=== PATIENT | female | born 1975 | race Caucasian/White ===

== ENCOUNTER → 2017-01-08 | Outpatient (CLI) | payer BC ==
--- NOTE | 2017-01-08 09:26 | MM ---
Reason for exam: screening (asymptomatic). Baseline mammogram. History: Family history of breast cancer in grandmother at age 80. Excisional biopsy of the right breast, 1997. Took hormonal contraceptives for 3 years beginning at age 17. Physical Findings: Nurse did not find any significant physical abnormalities on exam. MG 3D Screening Mammo W/Cad Bilateral CC and MLO view(s) were taken. The breast tissue is heterogeneously dense. This may lower the sensitivity of mammography. Post excisional biopsy retroareolar right breast mole. These results were verbally communicated with the patient and result sheet given to the patient on 01/08/17. ASSESSMENT: Benign, BI-RAD 2 RECOMMENDATION: Routine screening mammogram of both breasts in 1 year.
== END | disposition home or self-care (01) ==
LOC: RADMAMWWP 08:24
PROVIDERS: ATTEND Obstetrics & Gynecology
DX: Z12.31 Encounter for screening mammogram for malignant neoplasm of breast (principal)
CPT/HCPCS: 77063; G0202

== ENCOUNTER 2017-08-04 13:27 | Observation (INO) | payer BC ==
[2017-08-04] MEDS ORDERED: SODIUM CHLORIDE 0.9% 1,000 ML IV STA (14:11)
[2017-08-04] MEDS ORDERED: LORazepam 2 MG/ML INJ IV STA (14:21)
[2017-08-04 14:37] LABS: Basophils # (A) 0.1 k/uL (0-0.2); Basophils % (A) 1 %; Eosinophils # (A) 0.2 k/uL (0-0.7); Eosinophils % (A) 2 %; HCT 41.4 % (34.0-46.0); HGB 14.5 gm/dL (11.4-16.0); Lymphocytes # (A) 2.3 k/uL (1.0-4.8); Lymphocytes % (A) 30 %; MCH 30.4 pg (25.0-35.0); MCV 86.8 fL (80.0-100.0); Mean Platelet Volume 6.7; Monocytes # (A) 0.4 k/uL (0-1.0); Monocytes % (A) 5 %; Neutrophils # (A) 4.4 k/uL (1.3-7.7); Neutrophils % (A) 59 %; Platelet Count 351 k/uL (150-450); RBC 4.77 m/uL (3.80-5.40); WBC 7.6 k/uL (3.8-10.6)
--- NOTE | 2017-08-04 14:49 | XR ---
EXAMINATION TYPE: XR chest 2V DATE OF EXAM: 08/04/2017 COMPARISON: NONE HISTORY: Dysrhythmia TECHNIQUE: Frontal and lateral views of the chest are obtained. FINDINGS: There is no focal air space opacity, pleural effusion, or pneumothorax seen. The cardiac silhouette size is within normal limits. Suspect a scoliosis and associated pectus deformity. The os seous structures are intact. IMPRESSION: No acute cardiopulmonary process.
[2017-08-04 14:51] LABS: ALT 25 U/L (9-52); AST 24 U/L (14-36); Albumin 4.6 g/dL (3.5-5.0); Alkaline Phosphatase 69 U/L (38-126); Anion Gap 17 mmol/L; Blood Urea Nitrogen 11 mg/dL (7-17); Calcium 9.5 mg/dL (8.4-10.2); Carbon Dioxide 20 mmol/L (22-30); Chloride 103 mmol/L (98-107); Glucose 123 mg/dL (74-99); Potassium 3.6 mmol/L (3.5-5.1); Sodium 140 mmol/L (137-145); Total Bilirubin 1.1 mg/dL (0.2-1.3); Total Protein 7.2 g/dL (6.3-8.2)
[2017-08-04 14:53] LABS: Creatine Kinase 91 U/L (30-135)
[2017-08-04 14:57] LABS: D-Dimer 0.27 mg/L FEU (<0.60)
[2017-08-04 15:06] LABS: Creatine Kinase MB 0.5 ng/mL (0.0-2.4); Troponin I <0.012 ng/mL (0.000-0.034)
[2017-08-04 15:11] LABS: INR 1.2 (<1.2); Prothrombin Time 11.2 sec (9.0-12.0)
--- NOTE | 2017-08-04 18:17 | ED ---
Arrhythmia/Palpitations HPI - General Chief Complaint: Arrhythmia/Palpitations Stated Complaint: racing heart Time Seen by Provider: 08/04/17 13:47 Source: patient Mode of arrival: wheelchair Limitations: no limitations - History of Present Illness Initial Comments: 31 years old female presents with a palpitation, she said she feels funny she feels her hands or tingling she called the chest pain but does symptoms of funny feeling in the chest like palpitation she is very anxious she denies any chest pain no shortness of breath no abdominal pain no pleuritic pain is just a palpitation and she had this going on recently then she is pretty pretty healthy no history of heart disease no hypertension or diabetes surgery gonzales he has only a uterine ablation done family history of the parents has a history of heart disease she is nonsmoker him in review of system is unremarkable otherwise - Related Data Home Medications Medication Instructions Recorded Confirmed No Known Home Medications [No 08/04/17 08/04/17 Known Home Medications] Allergies Allergy/AdvReac Type Severity Reaction Status Date / Time Sulfa (Sulfonamide Allergy Rash/Hives Verified 08/04/17 14:20 Antibiotics) Review of Systems ROS Statement: Those systems with pertinent positive or pertinent negative responses have been documented in the HPI. ROS Other: All systems not noted in ROS Statement are negative. Past Medical History Past Medical History: No Reported History History of Any Multi-Drug Resistant Organisms: None Reported Past Surgical History: Appendectomy Additional Past Surgical History / Comment(s): uterine ablasion, Past Psychological History: No Psychological Hx Reported Smoking Status: Current some day smoker Past Alcohol Use History: Occasional Past Drug Use History: None Reported General Exam - General Exam Comments Initial Comments: General: The patient is awake and alert, in no distress, and does not appear acutely ill. Very very anxious Skin: Skin is warm and dry and no rashes or lesions are noted. Eye: Pupils are equal, round and reactive to light, extra-ocular movements are intact; there is normal conjunctiva bilaterally. Ears, nose, mouth and throat: There are moist mucous membranes and no oral lesions. Neck: The neck is supple, there is no tenderness or JVD. Cardiovascular: There is a regular rate and rhythm. No murmur, rub or gallop is appreciated. Noticed tachycardia Respiratory: To auscultation bilateral, no wheezing no rhonchi no distress respiratory gonzales noticed Gastrointestinal: Soft, non-distended, non-tender abdomen without masses or organomegaly noted. There is no rebound or guarding present. Bowel sounds are unremarkable. Back: There is no tenderness to palpation in the midline. There is no obvious deformity. Musculoskeletal: Normal ROM, no tenderness, There is no pedal edema. There is no calf tenderness or swelling. No cords were appreciated. Neurological: CN II-XII intact, Cranial nerves III through XII are intact. There are no obvious motor or sensory deficits. Coordination appears grossly intact. Speech is normal. Psychiatric: Cooperative, anxious, no obvious depression noticed. Limitations: no limitations Course Vital Signs 08/04/17 08/04/17 08/04/17 13:45 15:06 16:03 Temperature 97.8 F Pulse Rate 111 H 93 83 Respiratory 24 18 18 Rate Blood Pressure 180/88 155/60 138/71 O2 Sat by Pulse 99 99 98 Oximetry Patient was reassessed at term 1800, CBC, d-dimer, troponin, compressive metabolic panel, chest x-ray are ordered unremarkable, the EKG had some ST depression in the considering the palpitation of her like to put her in observation for 3 sets of cardiac markers and now cardiology consult EKG Findings - EKG Comments: EKG Findings:: EKG is sinus tachycardia ventricular rate is 116 [place] interval is 160 QRS duration is 76 QT/QTc is 322/447 review of this EKG reveals some ST depression in lead 2 and [address] depression in aVF and noticed some ST depression in V4 V5 and V6 Medical Decision Making - Lab Data Result diagrams: 08/04/17 14:17 08/04/17 14:17 Lab Results 08/04/17 08/04/17 08/04/17 Range/Units 14:17 14:17 14:17 WBC 7.6 (3.8-10.6) k/uL RBC 4.77 (3.80-5.40) m/uL Hgb 14.5 (11.4-16.0) gm/dL Hct 41.4 (34.0-46.0) % MCV 86.8 (80.0-100.0) fL MCH 30.4 (25.0-35.0) pg MCHC 35.0 (31.0-37.0) g/dL RDW 12.0 (11.5-15.5) % Plt Count 351 (150-450) k/uL Neutrophils % 59 % Lymphocytes % 30 % Monocytes % 5 % Eosinophils % 2 % Basophils % 1 % Neutrophils # 4.4 (1.3-7.7) k/uL Lymphocytes # 2.3 (1.0-4.8) k/uL Monocytes # 0.4 (0-1.0) k/uL Eosinophils # 0.2 (0-0.7) k/uL Basophils # 0.1 (0-0.2) k/uL PT (9.0-12.0) sec INR (<1.2) APTT (22.0-30.0) sec D-Dimer (<0.60) mg/L FEU Sodium 140 (137-145) mmol/L Potassium 3.6 (3.5-5.1) mmol/L Chloride 103 (98-107) mmol/L Carbon Dioxide 20 L (22-30) mmol/L Anion Gap 17 mmol/L BUN 11 (7-17) mg/dL Creatinine 0.65 (0.52-1.04) mg/dL Est GFR (CKD-EPI)AfAm >90 (>60 ml/min/1.73 sqM) Est GFR (CKD-EPI)NonAf >90 (>60 ml/min/1.73 sqM) Glucose 123 H (74-99) mg/dL Calcium 9.5 (8.4-10.2) mg/dL Magnesium 2.0 (1.6-2.3) mg/dL Total Bilirubin 1.1 (0.2-1.3) mg/dL AST 24 (14-36) U/L ALT 25 (9-52) U/L Alkaline Phosphatase 69 (38-126) U/L Total Creatine Kinase 91 (30-135) U/L CK-MB (CK-2) 0.5 (0.0-2.4) ng/mL CK-MB (CK-2) Rel Index 0.5 Troponin I <0.012 (0.000-0.034) ng/mL Total Protein 7.2 (6.3-8.2) g/dL Albumin 4.6 (3.5-5.0) g/dL TSH 0.675 (0.465-4.680) mIU/L 08/04/17 Range/Units 14:17 WBC (3.8-10.6) k/uL RBC (3.80-5.40) m/uL Hgb (11.4-16.0) gm/dL Hct (34.0-46.0) % MCV (80.0-100.0) fL MCH (25.0-35.0) pg MCHC (31.0-37.0) g/dL RDW (11.5-15.5) % Plt Count (150-450) k/uL Neutrophils % % Lymphocytes % % Monocytes % % Eosinophils % % Basophils % % Neutrophils # (1.3-7.7) k/uL Lymphocytes # (1.0-4.8) k/uL Monocytes # (0-1.0) k/uL Eosinophils # (0-0.7) k/uL Basophils # (0-0.2) k/uL PT 11.2 (9.0-12.0) sec INR 1.2 H (<1.2) APTT 24.0 (22.0-30.0) sec D-Dimer 0.27 (<0.60) mg/L FEU Sodium (137-145) mmol/L Potassium (3.5-5.1) mmol/L Chloride (98-107) mmol/L Carbon Dioxide (22-30) mmol/L Anion Gap mmol/L BUN (7-17) mg/dL Creatinine (0.52-1.04) mg/dL Est GFR (CKD-EPI)AfAm (>60 ml/min/1.73 sqM) Est GFR (CKD-EPI)NonAf (>60 ml/min/1.73 sqM) Glucose (74-99) mg/dL Calcium (8.4-10.2) mg/dL Magnesium (1.6-2.3) mg/dL Total Bilirubin (0.2-1.3) mg/dL AST (14-36) U/L ALT (9-52) U/L Alkaline Phosphatase (38-126) U/L Total Creatine Kinase (30-135) U/L CK-MB (CK-2) (0.0-2.4) ng/mL CK-MB (CK-2) Rel Index Troponin I (0.000-0.034) ng/mL Total Protein (6.3-8.2) g/dL Albumin (3.5-5.0) g/dL TSH (0.465-4.680) mIU/L Disposition Clinical Impression: Palpitation Disposition: ADMITTED IP TO THIS HOSP Condition: Good Referrals: Aurelio Mosley MD [Primary Care Provider] - 1-2 days
[2017-08-04] MEDS ORDERED: MORPHINE SULFATE/PF 10MG/10ML VL IVP PRN (18:25)
[2017-08-04 20:46] VITALS: RESP 16
[2017-08-04] MEDS: METOPROLOL TARTRATE 25 MG TAB PO SCH (20:57)
[2017-08-04] MEDS ORDERED: ATORVASTATIN 40 MG TAB PO SCH (21:00)
[2017-08-04 21:03] LABS: Creatine Kinase 63 U/L (30-135)
[2017-08-04 21:13] VITALS: BMI 25.3
[2017-08-04 21:17] LABS: Creatine Kinase MB 0.5 ng/mL (0.0-2.4); Troponin I <0.012 ng/mL (0.000-0.034)
[2017-08-05 02:57] LABS: Cholesterol 147 mg/dL (<200); HDL Cholesterol 62 mg/dL (40-60); LDL Cholesterol,Calculated 72 mg/dL (0-99); Triglycerides 67 mg/dL (<150)
[2017-08-05 03:14] LABS: Creatine Kinase 60 U/L (30-135)
[2017-08-05 03:25] LABS: Creatine Kinase MB 0.4 ng/mL (0.0-2.4); Troponin I <0.012 ng/mL (0.000-0.034)
--- NOTE | 2017-08-05 07:53 | P.HPIM ---
History of Present Illness H&P Date: 08/05/17 Chief Complaint: Palpitations. This is a history of physical 41-year-old white female fairly well-known to my practice who said for the last 6 months is been stating significant start of palpitations. Yesterday, he she had significant lightheadedness with arm numbness and was found have significant SVT. The patient states that the palpitations usually last about 10-15 minutes and are not provoked by any type of maneuver. They resolve spontaneously without any palliative element. No loss consciousness. But there was lightheadedness as stated yesterday. She states they've been happening daily for the last several weeks. No fever or chills. No cough the patient is nonsmoker. She does intermittently drink wine at night. However, no history of alcoholism. No history of illicit substance abuse. Review of Systems Constitutional: Denies chills, Denies fever Eyes: denies blurred vision, denies pain Ears, nose, mouth and throat: Denies headache, Denies sore throat Cardiovascular: Denies chest pain, Denies shortness of breath Respiratory: Denies cough Gastrointestinal: Denies abdominal pain, Denies diarrhea, Denies nausea, Denies vomiting Genitourinary: Denies dysuria, Denies hematuria Past Medical History Past Medical History: No Reported History History of Any Multi-Drug Resistant Organisms: None Reported Past Surgical History: Appendectomy Additional Past Surgical History / Comment(s): uterine ablasion, right lumpectomy which was negative Past Anesthesia/Blood Transfusion Reactions: No Reported Reaction Additional Past Anesthesia/Blood Transfusion Reaction / Comment(s): pt states no reactions Past Psychological History: No Psychological Hx Reported Smoking Status: Current some day smoker Past Alcohol Use History: Occasional Past Drug Use History: None Reported - Past Family History Mother Family Medical History: Cancer Additional Family Medical History / Comment(s): nonhodgkins lymphoma Father Family Medical History: Cancer Additional Family Medical History / Comment(s): leukemia Medications and Allergies Home Medications Medication Instructions Recorded Confirmed Type No Known Home Medications [No 08/04/17 08/04/17 History Known Home Medications] Allergies Allergy/AdvReac Type Severity Reaction Status Date / Time Sulfa (Sulfonamide Allergy Rash/Hives Verified 08/04/17 14:20 Antibiotics) Physical Exam Vitals: Vital Signs Temp Pulse Pulse Resp BP BP Pulse Ox 08/05/17 04:00 96.6 F L 77 16 123/65 98 08/05/17 00:00 97.8 F 89 16 132/63 98 08/04/17 20:45 98.0 F 88 16 139/82 98 08/04/17 19:08 81 18 151/75 99 08/04/17 16:03 83 18 138/71 98 08/04/17 15:06 93 18 155/60 99 08/04/17 13:45 97.8 F 111 H 24 180/88 99 Intake and Output 08/04/17 08/05/17 08/05/17 22:59 06:59 14:59 Intake Total 999 Balance 999 Intake: Intake, IV Titration 999 Amount Sodium Chloride 0.9% 1, 999 000 ml @ 999 mls/hr IV . Q1H1M STA Rx#:[id number] Other: Voiding Method Toilet # Voids 0 Weight 71.214 kg 71.2 kg - Constitutional General appearance: no acute distress - EENT Eyes: EOMI - Neck Neck: no lymphadenopathy - Respiratory Respiratory: bilateral: CTA - Cardiovascular Rhythm: regular Heart sounds: normal: S1, S2 - Gastrointestinal General gastrointestinal: soft, no tenderness - Psychiatric Psychiatric: A&O x's 3 Results CBC & Chem 7: 08/04/17 14:17 08/04/17 14:17 Labs: Abnormal Lab Results - Last 24 Hours (Table) 08/04/17 08/04/17 08/05/17 Range/Units 14:17 14:17 02:13 INR 1.2 H (<1.2) Carbon Dioxide 20 L (22-30) mmol/L Glucose 123 H (74-99) mg/dL HDL Cholesterol 62 H (40-60) mg/dL Thrombosis Risk Factor Assmnt - Choose All That Apply Any of the Below Risk Factors Present?: Yes Each Factor Represents 1 point: Obesity (BMI >25) Other Risk Factors: No Thrombosis Risk Factor Assessment Total Risk Factor Score: 1 Thrombosis Risk Factor Assessment Level: Low Risk Assessment and Plan (1) Tachycardia Current Visit: Yes Status: Acute Code(s): R00.0 - TACHYCARDIA, UNSPECIFIED SNOMED Code(s): 1867025 (2) Palpitation Current Visit: Yes Status: Acute Code(s): R00.2 - PALPITATIONS SNOMED Code (s): 73883211 Plan: Palpitations with history of tachycardia. We'll go ahead and check echocardiogram and consider Holter versus monitor given her daily symptomatology. Consult cardiology. Consider echocardiogram. Also check TSH with electrolyte imbalance. The patient is full code otherwise. Time with Patient: Less than 30
[2017-08-05] MEDS: METOPROLOL TARTRATE 25 MG TAB PO SCH (08:36)
[2017-08-05] MEDS ORDERED: ASPIRIN 325 MG TAB PO SCH (09:00)
--- NOTE | 2017-08-05 10:05 | CONS ---
CONSULTATION CHIEF COMPLAINT: Palpitations. 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, developed sustained palpitations yesterday. With that she felt somewhat unwell, felt a little dizzy and had some shoulder discomfort due to which she went to the ER from where she is admitted. Her initial EKG shows sinus tachycardia with ST-T wave changes, probably related to it. Subsequently, her heart rate has come down and she has been feeling well since. Subsequent EKGs also look normal. She has had 3 sets of cardiac enzymes that are all within normal limits. D-dimer is normal. Hemoglobin is normal at 14.5. Her lipid profile shows an total cholesterol of 147, HDL is 62, LDL is 72. There is no history of hypertension, diabetes, dyslipidemia. FAMILY HISTORY: There is no family history of premature coronary artery disease. SOCIAL HISTORY: Significant for smoking. There is no history of EtOH abuse or drug abuse. REVIEW OF SYSTEMS: HEENT is unremarkable. CARDIAC: As described above. RESPIRATORY: Negative. GI: Negative. : Negative. ALLERGY/IMMUNOLOGY: Negative. SKIN: Negative. MUSCULOSKELETAL: Negative. ENDOCRINE: Negative. HEMATOLOGICAL: Negative. DERM: Negative. CONSTITUTIONAL: Negative. ONCOLOGICAL: Negative. Rest of the system review is not relevant. PHYSICAL EXAM: On exam, comfortable at rest. Vital signs are stable. There is no jugular venous distention. Carotid upstroke is normal. There is no bruit, Chest exam reveals good air entry bilaterally. Heart exam reveals first and second heart sounds. No gallop. No murmur. No rub. Abdomen is soft, nontender. Examination of extremities did not reveal any edema. Peripheral pulses are felt. LABS: Labs show that the hemoglobin is 14.5, platelet count is 350. Potassium is 3.6. Creatinine is 0.6. Three sets of troponins are negative. EKGs are as described above. ASSESSMENT: Inappropriate sinus tachycardia. PLAN: I am going to obtain an echocardiogram to assess her LV function. A stress test to rule out coronary artery disease given the history of smoking and the nonspecific ST-T wave changes on the EKG and atypical chest discomfort. If this workup is negative, she can be discharged home on Lopressor 25 b.i.d. for the inappropriate sinus tachycardia. Thank you for allowing us to participate in the care of this pleasant lady. MMODL / IJN: [id number] /
[2017-08-05] MEDS ORDERED: MORPHINE ORAL SOLN 10 MG/5 ML CUP PO PRN (15:32)
[2017-08-05] MEDS ORDERED: METOPROLOL SUCCINATE (ER) 25 MG TAB.ER.24H PO SCH (16:00)
[2017-08-05 16:02] VITALS: BP 121/69; PULSE 75; TEMP 97.2
--- NOTE | 2017-08-05 21:43 | ECHOS ---
STRESS ECHOCARDIOGRAM DATE OF SERVICE: 08/05/2017 INDICATIONS: Chest pain. MEDICATIONS: None. BASELINE HEART RATE: 81 BASELINE BLOOD PRESSURE: 125/68 MAXIMUM HEART RATE: 159 MAXIMUM BLOOD PRESSURE: 171/77 85% MPHR: 153 100% MPHR: 180 METS: 11.5 MAXIMUM STAGE REACHED: 4 TOTAL EXERCISE TIME: 10:00 CLINICAL INFORMATION: Baseline EKG revealed a normal sinus rhythm without significant ST-T changes. Patient walked on a standard Vahe protocol, achieved a maximal heart rate of 159 beats per minute, which is more than 85% of predicted maximal. She developed fatigue and shortness of breath but did not have any anginal symptoms. EKG revealed some artifact, but there was no evidence of any ST-segment changes to indicate ischemia. There was no arrhythmia. By EKG criteria, this is a negative stress test with excellent exercise capacity. Baseline echo images revealed normal wall motion and wall thickening of all segments. At peak exercise there was good augmentation of left ventricular wall motion and wall thickening of all segments, suggesting that there is no evidence of stress-induced ischemia on this study. FINAL IMPRESSION: 1. Excellent exercise capacity with a negative stress test by EKG criteria. 2. Normal stress echocardiogram without any evidence of ischemia. MMODL / IJN: [id number] /
--- NOTE | 2017-08-06 18:13 | P.DS ---
Providers Date of admission: 08/04/17 18:17 Expected date of discharge: 08/06/17 Attending physician: Aurelio Mosley Consults: 08/04/17 18:17 Consult Physician Urgent Consulting Provider: Thea Zamora Consult Reason/Comments: Palpitations Do you want consulting provider notified?: Yes Primary care physician: Aurelio Mosley - Discharge Diagnosis(es) (1) Tachycardia Status: Acute (2) Palpitation Status: Acute Hospital Course: This is discharge summary on a 41-year-old white female essentially admitted for palpitations and ventricular tachycardia. The patient had dizziness with lightheadedness. Stress echocardiogram with echocardiogram did not show significant issue. The patient is discharged in stable condition on appropriate beta-luis angel once cleared by cardiology. The patient is to follow- up with me in about 10 days. Patient Condition at Discharge: Good Plan - Discharge Summary New Discharge Prescriptions: New Metoprolol Succinate (ER) [Toprol XL] 25 mg PO DAILY #30 tab.er.24h Discharge Medication List Metoprolol Succinate (ER) [Toprol XL] 25 mg PO DAILY #30 tab.er.24h 08/05/17 [Rx ] Follow up Appointment(s)/Referral(s): Rupesh Zamorano MD [STAFF PHYSICIAN] - 08/31/17 4:15 pm (Please pickup driver event monitor during lunch hour tomorrow at [facility].) Aurelio Mosley MD [Primary Care Provider] - 10 Days Patient Instructions/Handouts: Palpitations (DC) Discharge Disposition: HOME SELF-CARE
--- NOTE | 2017-08-17 13:24 | ECHOF ---
Referral Reason: MEASUREMENTS -------- HEIGHT: 167.6 cm WEIGHT: 70.8 kg BP: RVIDd: 2.8 cm (< 3.3) IVSd: 0.9 cm (0.6 - 1.1) LVIDd: 4.3 cm (3.9 - 5.3) LVPWd: 0.9 cm (0.6 - 1.1) IVSs: 1.3 cm LVIDs: 2.5 cm LVPWs: 1.2 cm Ao Diam: 2.6 cm (2.0 - 3.7) AV Cusp: 2.0 cm (1.5 - 2.6) LA Diam: 2.7 cm (2.7 - 3.8) MV EXCURSION: 14.881 mm (> 18.000) MV EF SLOPE: 121 mm/s (70 - 150) EPSS: 0.3 cm MV E Hawk: 0.95 m/s MV DecT: 234 ms MV A Hawk: 0.65 m/s MV E/A Ratio: 1.47 RAP: 5.00 mmHg RVSP: 7.40 mmHg FINDINGS -------- Sinus rhythm. This was a technically good study. The left ventricular size is normal. Left ventricular wall thickness is normal. Overall left vent ricular systolic function is normal with, an EF between 55 - 60 %. The right ventricle is normal in size and function. The left atrium is normal in size. The right atrium is normal in size. The aortic valve is trileaflet, and appears structurally normal. No aortic stenosis or regurgitation. There is trace mitral regurgitation. Trace tricuspid regurgitation present. The right ventricular systolic pressure, as measured by Dopp ler, is 7.40mmHg. Pulmonic valve appears structurally normal. The aortic root size is normal. Normal inferior vena cava with normal inspiratory collapse consistent with estimated right atrial pre ssure of 5 mmHg. The pericardium is normal. CONCLUSIONS -------- 1. Sinus rhythm. 2. This was a technically good study. 3. The left ventricular size is normal. 4. Left ventricular wall thickness is normal. 5. Overall left ventricular systolic function is normal with, an EF between 55 - 60 %. 6. The right ventricle is normal in size and function. 7. The left atrium is normal in size. 8. The right atrium is normal in size. 9. The aortic valve is trileaflet, and appears structurally normal. No aortic stenosis or regurgitati on. 10. There is trace mitral regurgitation. 11. Trace tricuspid regurgitation present. 12. The right ventricular systolic pressure, as measured by Doppler, is 7.40mmHg. 13. Pulmonic valve appears structurally normal. 14. The aortic root size is normal. 15. Normal inferior vena cava with normal inspiratory collapse consistent with estimated right atrial pressure of 5 mmHg. 16. The pericardium is normal. ELECTRONIC DEVICE REPAIRER: Kely Mendoza RDCS
--- NOTE | 2017-08-17 14:17 | CDI ---
Outpatient Documentation Clarification Form Date: 08/17/17 CDS/Grass Cutter Name: Aury Awad Phone: If any questions, call Rosalinda Cox [employer] at [phone] Patient Name: Delores Juarez Admit Date: 08/04/17 Discharge Date: 08/05/17 ATTENTION: The [facility] Coding Staff appreciate your assistance in clarifying documentation. Please respond to the clarification below the line at the bottom and electronically sign. The [facility] Coding staff will review the response and follow-up if needed. Please note: Queries are made part of the Legal Health Record. If you have any questions, please contact the [employer]. Dear Dr. Mosley, Please assist in clarifying what the patient primary diagnosis is as there appears to be conflicting documentation. In your discharge summary you have documented the patient was admitted for palpitation and ventricular tachycardia. EKG and through the rest of the documentation only has sinus tachycardia The consult completed by Dr Zamorano has the final diagnosis as Inappropriate sinus tachycardia. In your clinical judgement, please clarify your final diagnosis. -Tachycardia, unspecified -Sinus tachycardia -Supraventricular tachycardia -Ventricular tachycardia Please document your clarification beneath the line below on this form. MTDD
== END 2017-08-05 16:14 | disposition home or self-care (01) ==
LOC: EC 13:27 → 6SEL 18:17
PROVIDERS: ADMIT Family Medicine; ATTEND Family Medicine
DX: R00.0 Tachycardia, unspecified (principal); R42 Dizziness and giddiness; R07.89 Other chest pain; R20.0 Anesthesia of skin; R94.31 Abnormal electrocardiogram [ECG] [EKG]; F17.200 Nicotine dependence, unspecified, uncomplicated; E66.09 Other obesity due to excess calories; Z68.25 Body mass index [BMI] 25.0-25.9, adult; F41.9 Anxiety disorder, unspecified; Z88.2 Allergy status to sulfonamides; Z80.7 Family history of other malignant neoplasms of lymphoid, hematopoietic and related tissues; Z80.6 Family history of leukemia
CPT/HCPCS: 96361 ×6; 96374 ×2; 99285 ×2; 93005 ×2; 36415; 93017; 93306; 93350; 85379; 80061; 80053; 82550 ×2; 82553 ×2; 83735; 84443; 84484 ×2; 85025; 85610; 85730; 71046; G0378 ×2; J2060

== ENCOUNTER → 2018-02-02 | Outpatient (CLI) | payer BC ==
--- NOTE | 2018-02-03 08:55 | MM ---
Reason for exam: screening (asymptomatic). Last mammogram was performed 1 year and 1 month ago. History: Family history of breast cancer in grandmother at age 80. Excisional biopsy of the right breast, 1997. Took hormonal contraceptives for 3 years beginning at age 17. Physical Findings: A clinical breast exam by your physician is recommended on an annual basis and results should be correlated with mammographic findings. MG 3D Screening Mammo W/Cad Bilateral CC and MLO view(s) were taken. Prior study comparison: January 08, 2017, bilateral MG 3d screening mammo w/cad. The breast tissue is heterogeneously dense. This may lower the sensitivity of mammography. There is no discrete abnormality. No significant changes when compared with prior studies. ASSESSMENT: Negative, BI-RAD 1 RECOMMENDATION: Routine screening mammogram of both breasts in 1 year.
== END | disposition home or self-care (01) ==
LOC: RADMAMWWP 07:48
PROVIDERS: ATTEND Obstetrics & Gynecology
DX: Z12.31 Encounter for screening mammogram for malignant neoplasm of breast (principal); Z80.3 Family history of malignant neoplasm of breast
CPT/HCPCS: 77063; 77067

== ENCOUNTER 2018-09-14 12:26 | Emergency (ER) | payer BC ==
[2018-09-14 12:31] VITALS: TEMP 98
[2018-09-14] MEDS ORDERED: DEXAMETHASONE SOD PHOSPHATE 10 MG/ML 1 ML VIAL IV STA (12:38)
[2018-09-14] MEDS ORDERED: FAMOTIDINE 20 MG/2 ML VIAL IV STA (12:38)
[2018-09-14] MEDS ORDERED: SODIUM CHLORIDE 0.9% 1,000 ML IV STA (12:38)
--- NOTE | 2018-09-14 12:44 | ED ---
General Adult HPI - General Chief complaint: Allergic Reaction Stated complaint: Allgeric reaction Time Seen by Provider: 09/14/18 12:35 Source: patient, RN notes reviewed, old records reviewed Mode of arrival: ambulatory Limitations: no limitations - History of Present Illness Initial comments: 41-year-old female presents with suspected ALLERGIC reaction. Patient's symptoms began just prior to arrival. She was drinking a smoothie which had multiple types of food in it. She began feeling flushed. She has palpitations. Denies significant dyspnea. Denies tongue swelling. She is having some periorbital numbness and tingling. No vomiting. She took 50 mg of Benadryl prior to arrival. She is otherwise healthy with no chronic medical problems. - Related Data Home Medications Medication Instructions Recorded Confirmed Cholecalciferol (Vitamin D3) 2,000 unit PO DAILY 09/14/18 09/14/18 [Vitamin D3] Ibuprofen [Motrin] 600 mg PO ONCE 09/14/18 09/14/18 L.acidoph,Paracasei, B.lactis 1 cap PO DAILY 09/14/18 09/14/18 [Probiotic] Multivitamins, Thera [Multivitamin 1 tab PO DAILY 09/14/18 09/14/18 (formulary)] Turmeric Root Extract [Turmeric] 500 mg PO DAILY 09/14/18 09/14/18 Zinc Gluconate [Zinc] 50 mg PO DAILY 09/14/18 09/14/18 diphenhydrAMINE [Benadryl] 50 mg PO ONCE 09/14/18 09/14/18 Previous Rx's Medication Instructions Recorded Famotidine [Pepcid] 20 mg PO DAILY #7 tablet 09/14/18 diphenhydrAMINE [Benadryl] 25 mg PO TID #21 capsule 09/14/18 methylPREDNISolone Dose Pack 4 mg PO DIRECTED #21 package 09/14/18 [Medrol Dose Pack] Allergies Allergy/AdvReac Type Severity Reaction Status Date / Time Sulfa (Sulfonamide Allergy Rash/Hives Verified 09/14/18 13:09 Antibiotics) Review of Systems ROS Statement: Those systems with pertinent positive or pertinent negative responses have been documented in the HPI. ROS Other: All systems not noted in ROS Statement are negative. Past Medical History Past Medical History: No Reported History History of Any Multi-Drug Resistant Organisms: None Reported Past Surgical History: Appendectomy Additional Past Surgical History / Comment(s): uterine ablasion, right lumpectomy which was negative Past Anesthesia/Blood Transfusion Reactions: No Reported Reaction Additional Past Anesthesia/Blood Transfusion Reaction / Comment(s): pt states no reactions Past Psychological History: No Psychological Hx Reported Smoking Status: Current some day smoker Past Alcohol Use History: Occasional Past Drug Use History: None Reported - Past Family History Mother Family Medical History: Cancer Additional Family Medical History / Comment(s): nonhodgkins lymphoma Father Family Medical History: Cancer Additional Family Medical History / Comment(s): leukemia General Exam Limitations: no limitations General appearance: alert, in no apparent distress Head exam: Present: atraumatic, normocephalic Eye exam: Present: normal appearance, PERRL ENT exam: Present: normal exam, other (No pharyngeal edema, no uvular swelling, no tongue swelling) Respiratory exam: Present: normal lung sounds bilaterally, respiratory distress. Absent: wheezes, rhonchi, decreased breath sounds Cardiovascular Exam: Present: normal rhythm, tachycardia GI/Abdominal exam: Present: soft. Absent: distended, tenderness, guarding Neurological exam: Present: alert Psychiatric exam: Present: anxious Skin exam: Present: warm, erythema (Diffuse erythema) Course Vital Signs 09/14/18 09/14/18 09/14/18 12:28 12:53 13:00 Temperature 98 F Pulse Rate 131 H 114 H 98 Respiratory 20 18 18 Rate Blood Pressure 154/85 162/99 O2 Sat by Pulse 99 98 97 Oximetry 09/14/18 09/14/18 09/14/18 13:15 13:30 14:15 Temperature Pulse Rate 114 H 90 87 Respiratory 18 18 18 Rate Blood Pressure 148/93 154/94 135/88 O2 Sat by Pulse 98 97 98 Oximetry - Reevaluation(s) Reevaluation #1: 09/14/18 14:57 Patient reevaluated, resting comfortably, symptoms resolved, eager for discharge. Medical Decision Making - Medical Decision Making 42-year-old female presenting with ALLERGIC reaction likely secondary to food smoothly. Initially patient is erythematous, tachycardic stable blood pressure. No tongue or lip swelling, no uvular edema, no wheezing on lung auscultation. She is given IV Pepcid and Decadron. She was given oral Benadryl prior to arrival. She is observed in the emergency department for approximately 2 hours. She has resolution of symptoms in that timeframe. She will be prescribed steroid pack as well as continue to take both Pepcid and Benadryl. Please will present for worsening or changing symptoms. - Lab Data Result diagrams: 09/14/18 12:47 09/14/18 12:47 Lab Results 09/14/18 09/14/18 Range/Units 12:47 12:47 WBC 10.8 H (3.8-10.6) k/uL RBC 4.70 (3.80-5.40) m/uL Hgb 14.2 (11.4-16.0) gm/dL Hct 42.8 (34.0-46.0) % MCV 91.2 (80.0-100.0) fL MCH 30.1 (25.0-35.0) pg MCHC 33.1 (31.0-37.0) g/dL RDW 12.3 (11.5-15.5) % Plt Count 360 (150-450) k/uL Neutrophils % 63 % Lymphocytes % 27 % Monocytes % 5 % Eosinophils % 2 % Basophils % 0 % Neutrophils # 6.8 (1.3-7.7) k/uL Lymphocytes # 2.9 (1.0-4.8) k/uL Monocytes # 0.5 (0-1.0) k/uL Eosinophils # 0.2 (0-0.7) k/uL Basophils # 0.0 (0-0.2) k/uL Sodium 136 L (137-145) mmol/L Potassium 4.1 (3.5-5.1) mmol/L Chloride 104 (98-107) mmol/L Carbon Dioxide 19 L (22-30) mmol/L Anion Gap 13 mmol/L BUN 13 (7-17) mg/dL Creatinine 0.61 (0.52-1.04) mg/dL Est GFR (CKD-EPI)AfAm >90 (>60 ml/min/1.73 sqM) Est GFR (CKD-EPI)NonAf >90 (>60 ml/min/1.73 sqM) Glucose 125 H (74-99) mg/dL Calcium 10.0 (8.4-10.2) mg/dL Total Bilirubin 1.0 (0.2-1.3) mg/dL AST 22 (14-36) U/L ALT 24 (9-52) U/L Alkaline Phosphatase 72 (38-126) U/L Total Protein 7.5 (6.3-8.2) g/dL Albumin 4.7 (3.5-5.0) g/dL Disposition Clinical Impression: Allergic reaction, Food allergy Disposition: HOME SELF-CARE Condition: Good Instructions (If sedation given, give patient instructions): Food Allergy (ED), General Allergic Reaction (ED) Prescriptions: diphenhydrAMINE [Benadryl] 25 mg PO TID #21 capsule methylPREDNISolone Dose Pack [Medrol Dose Pack] 4 mg PO DIRECTED #21 package Famotidine [Pepcid] 20 mg PO DAILY #7 tablet Is patient prescribed a controlled substance at d/c from ED?: No Referrals: Aurelio Mosley MD [Primary Care Provider] - 1-2 days Time of Disposition: 14:59
[2018-09-14 12:53] VITALS: RESP 18
[2018-09-14 13:12] LABS: Basophils % (A) 0 %; Eosinophils # (A) 0.2 k/uL (0-0.7); Eosinophils % (A) 2 %; HCT 42.8 % (34.0-46.0); HGB 14.2 gm/dL (11.4-16.0); Lymphocytes # (A) 2.9 k/uL (1.0-4.8); Lymphocytes % (A) 27 %; MCH 30.1 pg (25.0-35.0); MCHC 33.1 g/dL (31.0-37.0); MCV 91.2 fL (80.0-100.0); Mean Platelet Volume 6.6; Monocytes # (A) 0.5 k/uL (0-1.0); Monocytes % (A) 5 %; Neutrophils # (A) 6.8 k/uL (1.3-7.7); Neutrophils % (A) 63 %; Platelet Count 360 k/uL (150-450); RDW 12.3 % (11.5-15.5); WBC 10.8 k/uL (3.8-10.6)
[2018-09-14 13:15] LABS: ALT 24 U/L (9-52); AST 22 U/L (14-36); Albumin 4.7 g/dL (3.5-5.0); Alkaline Phosphatase 72 U/L (38-126); Anion Gap 13 mmol/L; Blood Urea Nitrogen 13 mg/dL (7-17); Carbon Dioxide 19 mmol/L (22-30); Chloride 104 mmol/L (98-107); Glucose 125 mg/dL (74-99); Potassium 4.1 mmol/L (3.5-5.1); Sodium 136 mmol/L (137-145); Total Protein 7.5 g/dL (6.3-8.2)
[2018-09-14] MEDS ORDERED: LORazepam 2 MG/ML INJ IV STA (13:25)
[2018-09-14 15:09] VITALS: BP 136/72; PULSE 88
== END 2018-09-14 15:19 | disposition home or self-care (01) ==
LOC: EC 12:26
DX: T78.1XXA Other adverse food reactions, not elsewhere classified, initial encounter (principal); F17.200 Nicotine dependence, unspecified, uncomplicated; Z79.1 Long term (current) use of non-steroidal anti-inflammatories (NSAID); Z79.899 Other long term (current) drug therapy; Z88.2 Allergy status to sulfonamides
CPT/HCPCS: 36415; 80053; 85025; 99285; 96374; 96375 ×2; 96361 ×2; J2060; J1100

== ENCOUNTER → 2019-02-14 | Outpatient (CLI) | payer BC ==
--- NOTE | 2019-02-16 09:43 | MM ---
Reason for exam: screening (asymptomatic). Last mammogram was performed 2 years and 1 month ago. History: Family history of breast cancer in grandmother at age 80. Excisional biopsy of the right breast, 1997. Took hormonal contraceptives for 3 years beginning at age 17. Physical Findings: A clinical breast exam by your physician is recommended on an annual basis and results should be correlated with mammographic findings. MG 3D Screening Mammo W/Cad Bilateral CC and MLO view(s) were taken. Prior study comparison: February 02, 2018, bilateral MG 3d screening mammo w/cad. January 08, 2017, bilateral MG 3d screening mammo w/cad. The breast tissue is heterogeneously dense. This may lower the sensitivity of mammography. There is chronic nodularity bilaterally. 1.1cm nodule posterior left breast just medial to the retroareolar plane previously measured 8mm. Ultrasound recommended. ASSESSMENT: Incomplete: need additional imaging evaluation, BI-RAD 0 RECOMMENDATION: Special view mammogram of the left breast. (lateral 3D) Ultrasound of the left breast. [facility] will attempt to contact patient to return for supplemental views and ultrasound.
== END | disposition home or self-care (01) ==
LOC: RADMAMWWP 07:36
PROVIDERS: ATTEND Obstetrics & Gynecology
DX: Z12.31 Encounter for screening mammogram for malignant neoplasm of breast (principal)
CPT/HCPCS: 77063; 77067

== ENCOUNTER → 2019-02-22 | Outpatient (CLI) | payer BC ==
--- NOTE | 2019-02-22 13:49 | MM ---
Reason for exam: additional evaluation requested from abnormal screening. Last mammogram was performed less than 1 month ago. History: Family history of breast cancer in grandmother at age 80. Excisional biopsy of the right breast, 1997. Took hormonal contraceptives for 3 years beginning at age 17. Physical Findings: Nurse Summary: 1cm nodule in the left breast at 11-12 o'clock (nurse kp). MG 3D Work Up W/Cad LT Spot compression CC, spot compression MLO, and LM view(s) were taken of the left breast. Prior study comparison: February 14, 2019, bilateral MG 3d screening mammo w/cad. February 02, 2018, bilateral MG 3d screening mammo w/cad. The breast tissue is heterogeneously dense. This may lower the sensitivity of mammography. Previously seen upper inner quadrant mass 7-8cm from nipple is redemonstrated in the superior breast on 3D LM. These results were verbally communicated with the patient and result sheet given to the patient on 02/22/19. ASSESSMENT: Incomplete: need additional imaging evaluation, BI-RAD 0 RECOMMENDATION: Ultrasound of the left breast. (upper inner quadrant, include palpable)
--- NOTE | 2019-02-22 13:52 | USB ---
Reason for exam: additional evaluation requested from abnormal screening. History: Family history of breast cancer in grandmother at age 80. Excisional biopsy of the right breast, 1997. Took hormonal contraceptives for 3 years beginning at age 17. US Breast Workup Limited LT Left limited breast ultrasound including focal area of concern, retroareolar and axilla demonstrates a 0.3 x 0.3 x 0.2cm cystic lesion at 10 o'clock and a 0.7 x 0.7 x 0.6cm cystic lesion at 11 o'clock, appears anechoic but taller than wide on some images, some enhancement, aspiration with biopsy marker placement recommended. Correlate post biopsy mammogram with biopsy marker placement and mammogram mass. These results were verbally communicated with the patient and result sheet given to the patient on 02/22/19. ASSESSMENT: Suspicious, BI-RAD 4 RECOMMENDATION: Aspiration of the left breast. Called Dr. Salter's office with mammographic findings and has scheduled an appointment for the patient for 04/06/19 at 1:[address] Dasilva. Biopsy scheduled for 03/14/19 at 2:00. PRELIMINARY REPORT CALLED AND FAXED TO DR. DASILVA ON 02/22/19.
== END | disposition home or self-care (01) ==
LOC: RADMAMWWP 10:17
PROVIDERS: ATTEND Obstetrics & Gynecology
DX: R92.8 Other abnormal and inconclusive findings on diagnostic imaging of breast (principal)
CPT/HCPCS: 77061; 77065

== ENCOUNTER → 2019-03-14 | Day surgery (SDC) | payer BC ==
[2019-03-14 13:20] VITALS: RESP 16; TEMP 98.4; BMI 25.8
[2019-03-14 15:05] VITALS: BP 137/89; PULSE 82
--- NOTE | 2019-03-14 15:58 | USB ---
EXAMINATION TYPE: US breast aspiration single LT, MG diagnostic mammo LT wo CAD DATE OF EXAM: 03/14/2019 COMPARISON: Left breast ultrasound dated 02/22/2019 CLINICAL HISTORY: R92.8 ABNORMAL MAMMOGRAM. FINDINGS: The procedure of ultrasound guided aspiration was explained to the patient. Benefits, alternatives, and risks were discussed. An informed consent was then obtained. Preprocedural timeout was performed. The patient was placed in supine positioning for imaging and for the procedure. The overlying skin was prepped and draped in usual sterile fashion. 10 cc of 1% lidocaine was used as anesthetic into the skin and subcutaneous tissue up to the probable cyst measuring 0.7 cm at the 11:00 position in the left breast. This does appear more cystic on the prebiopsy imaging and is located within a pocket of dense tissue. Under ultrasound guidance, an 18-gauge spinal needle was used to aspirate the cyst within the initial pass yielding approximately 1 cc of hemorrhagic right thin fluid. Following this, a coil-shaped biopsy marker was left at the site of aspiration. The patient tolerated the procedure well without any immediate complication. The patient was kept in the radiology department for short stay after the procedure and then discharged home in stable condition. Post procedure mammogram shows the coil-shaped biopsy marker at the site of the resolved left breast mass. IMPRESSION: Successful, uncomplicated ultrasound guided cyst aspiration of a 0.7 cm mass at the 11:00 position in the left breast yielding scant hemorrhagic fluid and corresponding to the mammographic mass, full pathology results to follow. Pathology Results: Benign LEFT BREAST, 11:00, ULTRASOUND GUIDED CYST ASPIRATE: Aggregates of bland apocrine lining cells consistent with benign apocrine cyst. Recommendation Follow up ultrasound of the left breast in 6 months. MTDD
== END ==
LOC: RADUSWWP 13:06
PROVIDERS: ATTEND Surgery
DX: N60.02 Solitary cyst of left breast (principal); N60.82 Other benign mammary dysplasias of left breast
CPT/HCPCS: 88108; 88305; 77065; 76942; 19000; A4648; J2001

== ENCOUNTER 2019-11-14 11:47 | Observation (INO) | payer BC ==
[2019-11-14] MEDS ORDERED: SODIUM CHLORIDE 0.9% 1,000 ML IV STA (12:04)
[2019-11-14] MEDS ORDERED: ONDANSETRON 4 MG/2 ML VIAL IVP STA (12:04)
[2019-11-14 12:05] LABS: Glucose,Whole Blood 119 mg/dL (75-99)
--- NOTE | 2019-11-14 12:07 | ED ---
General Adult HPI - General Chief complaint: Chest Pain Stated complaint: Dizziness,chest pain Time Seen by Provider: 11/14/19 11:57 Source: patient Mode of arrival: wheelchair Limitations: no limitations - History of Present Illness Initial comments: Dictation was produced using [employer] dictation software. please excuse any grammatical, word or spelling errors. This patient was cared for during a federal and state declared state of emergency secondary to Covid 19 Chief Complaint: 44-year-old female past medical history with right upper quadrant abdominal pain and dizziness History of Present Illness: 44-year-old female she presents with acute onset dizziness and abdominal pain. Patient states that she began expressing these s ymptoms approximately 1 hour prior to arrival. Patient is employed hospital. Prior to her symptoms onset she had some yogurt, pistachios. Shortly after she began feeling extremely dizzy and lightheaded. He does complain of some mild epigastric discomfort. Patient has any significant comorbidities. She had a lumpectomy that was found to be benign. Patient is not taking any medications on a regular basis. The ROS documented in this emergency department record has been reviewed and confirmed by me. Those systems with pertinent positive or negative responses have been documented in the HPI. All other systems are other negative and/or noncontributory. PHYSICAL EXAM: General Impression: Alert and oriented x3, not in acute distress HEENT: Normocephalic atraumatic, extra-ocular movements intact, pupils equal and reactive to light bilaterally, mucous membranes moist. Cardiovascular: Heart regular rate and rhythm Chest: Able to complete full sentences, no retractions, no tachypnea Abdomen: abdomen soft, positive right upper quadrant and Pascual sign, non- distended, no organomegaly Musculoskeletal: Pulses present and equal in all extremities, no peripheral edema Motor: no focal deficits noted Neurological: CN II-XII grossly intact, no focal motor or sensory deficits noted Skin: Intact with no visualized rashes Psych: Anxious ED course: 44-year-old female presents with epigastric abdominal pain, dizziness that is acute in onset. Vital signs upon arrival shows heart rate of 113, rest of vital signs are unremarkable. Patient does have tenderness to the right upper quadrant area and epigastric area. She has positive Pascual's sign. This occurred after eating a handful of nuts.Laboratory evaluation obtained. CBC is unremarkable. Coag panel unremarkable. Metabolic panel shows some mild non-gap acidosis. Liver enzymes are all unremarkable. Urinalysis is negative. Ultrasound abdomen was performed showing 4 cm mass in the right liver. Chest x- ray shows no acute processes. Patient reevaluated at bedside and still symptomatic. Laboratory results and imaging results were discussed with patient. Disposition options were explored with patient. She felt more c omfortable being admitted to the hospital for GI evaluation to evaluate this abnormality seen on ultrasound further. Discussed patient case with Dr. Mosley is willing to accept patients care for admission. EKG interpretation: Ventricular rate 105, sinus tachycardia, AL interval 172, QRS 68, QTc 444. No AL prolongation, no QTC prolongation. T-wave inversion in lead 3. ST depressions in V5. Overall, this EKG is unremarkable - Related Data Home Medications Medication Instructions Recorded Confirmed Cholecalciferol (Vitamin D3) 2,000 unit PO DAILY 09/14/18 11/14/19 [Vitamin D3] Multivitamins, Thera [Multivitamin 1 tab PO DAILY 09/14/18 11/14/19 (formulary)] Turmeric Root Extract [Turmeric] 500 mg PO DAILY 09/14/18 11/14/19 Omeprazole [PriLOSEC] 20 mg PO AC-BID PRN 11/14/19 11/14/19 Allergies Allergy/AdvReac Type Severity Reaction Status Date / Time NSAIDS (Non-Steroidal Allergy Anaphylaxis Verified 11/14/19 13:26 Anti-Inflamma Sulfa (Sulfonamide Allergy Rash/Hives Verified 11/14/19 13:26 Antibiotics) Review of Systems ROS Statement: Those systems with pertinent positive or pertinent negative responses have been documented in the HPI. ROS Other: All systems not noted in ROS Statement are negative. Past Medical History Past Medical History: No Reported History Additional Past Medical History / Comment(s): scoliosis, herniated disc History of Any Multi-Drug Resistant Organisms: None Reported Past Surgical History: Appendectomy Additional Past Surgical History / Comment(s): uterine ablation, right lumpectomy which was negative Past Anesthesia/Blood Transfusion Reactions: No Reported Reaction Additional Past Anesthesia/Blood Transfusion Reaction / Comment(s): pt states no reactions Past Psychological History: No Psychological Hx Reported Smoking Status: Current some day smoker Past Alcohol Use History: Occasional Past Drug Use History: None Reported - Past Family History Mother Family Medical History: Cancer Additional Family Medical History / Comment(s): nonhodgkins lymphoma Father Family Medical History: Cancer Additional Family Medical History / Comment(s): CLL leukemia General Exam Limitations: no limitations Course Vital Signs 11/14/19 11:51 Temperature 97.9 F Pulse Rate 113 H Respiratory 16 Rate Blood Pressure 184/81 O2 Sat by Pulse 99 Oximetry Medical Decision Making - Lab Data Result diagrams: 11/14/19 12:29 11/14/19 12:29 Lab Results 11/14/19 11/14/19 11/14/19 Range/Units 12:02 12:29 12:29 WBC 10.3 (3.8-10.6) k/uL RBC 4.80 (3.80-5.40) m/uL Hgb 14.8 (11.4-16.0) gm/dL Hct 45.6 (34.0-46.0) % MCV 94.8 (80.0-100.0) fL MCH 30.8 (25.0-35.0) pg MCHC 32.5 (31.0-37.0) g/dL RDW 12.1 (11.5-15.5) % Plt Count 318 (150-450) k/uL Neutrophils % 76 % Lymphocytes % 16 % Monocytes % 5 % Eosinophils % 1 % Basophils % 1 % Neutrophils # 7.8 H (1.3-7.7) k/uL Lymphocytes # 1.6 (1.0-4.8) k/uL Monocytes # 0.5 (0-1.0) k/uL Eosinophils # 0.1 (0-0.7) k/uL Basophils # 0.1 (0-0.2) k/uL PT 10.3 (9.0-12.0) sec INR 1.0 (<1.2) APTT 23.3 (22.0-30.0) sec Sodium (137-145) mmol/L Potassium (3.5-5.1) mmol/L Chloride (98-107) mmol/L Carbon Dioxide (22-30) mmol/L Anion Gap mmol/L BUN (7-17) mg/dL Creatinine (0.52-1.04) mg/dL Est GFR (CKD-EPI)AfAm (>60 ml/min/1.73 sqM) Est GFR (CKD-EPI)NonAf (>60 ml/min/1.73 sqM) Glucose (74-99) mg/dL POC Glucose (mg/dL) 119 H (75-99) mg/dL POC Glu X Ray Consultant ID Julisa Barnes Calcium (8.4-10.2) mg/dL Total Bilirubin (0.2-1.3) mg/dL Conjugated Bilirubin (0.0-0.3) mg/dL Unconjugated Bilirubin (0.0-1.1) mg/dL Delta Bilirubin (0.0-0.2) mg/dL AST (14-36) U/L ALT (4-34) U/L Alkaline Phosphatase (38-126) U/L Troponin I (0.000-0.034) ng/mL Total Protein (6.3-8.2) g/dL Albumin (3.5-5.0) g/dL Lipase (23-300) U/L Urine Color Urine Appearance (Clear) Urine pH (5.0-8.0) Ur Specific [place] (1.001-1.035) Urine Protein (Negative) Urine Glucose (UA) (Negative) Urine Ketones (Negative) Urine Blood (Negative) Urine Nitrite (Negative) Urine Bilirubin (Negative) Urine Urobilinogen (<2.0) mg/dL Ur Leukocyte Esterase (Negative) 11/14/19 11/14/19 11/14/19 Range/Units 12:29 12:29 12:31 WBC (3.8-10.6) k/uL RBC (3.80-5.40) m/uL Hgb (11.4-16.0) gm/dL Hct (34.0-46.0) % MCV (80.0-100.0) fL MCH (25.0-35.0) pg MCHC (31.0-37.0) g/dL RDW (11.5-15.5) % Plt Count (150-450) k/uL Neutrophils % % Lymphocytes % % Monocytes % % Eosinophils % % Basophils % % Neutrophils # (1.3-7.7) k/uL Lymphocytes # (1.0-4.8) k/uL Monocytes # (0-1.0) k/uL Eosinophils # (0-0.7) k/uL Basophils # (0-0.2) k/uL PT (9.0-12.0) sec INR (<1.2) APTT (22.0-30.0) sec Sodium 136 L (137-145) mmol/L Potassium 4.4 (3.5-5.1) mmol/L Chloride 106 (98-107) mmol/L Carbon Dioxide 19 L (22-30) mmol/L Anion Gap 11 mmol/L BUN 12 (7-17) mg/dL Creatinine 0.57 (0.52-1.04) mg/dL Est GFR (CKD-EPI)AfAm >90 (>60 ml/min/1.73 sqM) Est GFR (CKD-EPI)NonAf >90 (>60 ml/min/1.73 sqM) Glucose 108 H (74-99) mg/dL POC Glucose (mg/dL) (75-99) mg/dL POC Glu X Ray Consultant ID Calcium 9.6 (8.4-10.2) mg/dL Total Bilirubin 1.3 (0.2-1.3) mg/dL Conjugated Bilirubin 0.0 (0.0-0.3) mg/dL Unconjugated Bilirubin 1.2 H (0.0-1.1) mg/dL Delta Bilirubin 0.1 (0.0-0.2) mg/dL AST 32 (14-36) U/L ALT 21 (4-34) U/L Alkaline Phosphatase 71 (38-126) U/L Troponin I <0.012 (0.000-0.034) ng/mL Total Protein 7.7 (6.3-8.2) g/dL Albumin 5.0 (3.5-5.0) g/dL Lipase 142 (23-300) U/L Urine Color Colorless Urine Appearance Clear (Clear) Urine pH 6.5 (5.0-8.0) Ur Specific [place] 1.002 (1.001-1.035) Urine Protein Negative (Negative) Urine Glucose (UA) Negative (Negative) Urine Ketones Negative (Negative) Urine Blood Negative (Negative) Urine Nitrite Negative (Negative) Urine Bilirubin Negative (Negative) Urine Urobilinogen <2.0 (<2.0) mg/dL Ur Leukocyte Esterase Negative (Negative) Disposition Clinical Impression: Liver mass Disposition: ADMITTED IP TO THIS HOSP Condition: Fair Referrals: Aurelio Mosley MD [Primary Care Provider] - 1-2 days Decision Time: 13:57
[2019-11-14 12:43] LABS: Basophils # (A) 0.1 k/uL (0-0.2); Basophils % (A) 1 %; Eosinophils # (A) 0.1 k/uL (0-0.7); Eosinophils % (A) 1 %; HCT 45.6 % (34.0-46.0); HGB 14.8 gm/dL (11.4-16.0); Lymphocytes # (A) 1.6 k/uL (1.0-4.8); Lymphocytes % (A) 16 %; MCH 30.8 pg (25.0-35.0); MCHC 32.5 g/dL (31.0-37.0); MCV 94.8 fL (80.0-100.0); Mean Platelet Volume 7.2; Monocytes # (A) 0.5 k/uL (0-1.0); Monocytes % (A) 5 %; Neutrophils # (A) 7.8 k/uL (1.3-7.7); Neutrophils % (A) 76 %; Platelet Count 318 k/uL (150-450); RDW 12.1 % (11.5-15.5); WBC 10.3 k/uL (3.8-10.6)
[2019-11-14 12:52] LABS: ALT 21 U/L (4-34); AST 32 U/L (14-36); African American GFR (CKD) >90 (>60 ml/min/1.73 sqM); Alkaline Phosphatase 71 U/L (38-126); Anion Gap 11 mmol/L; Bilirubin, Delta 0.1 mg/dL (0.0-0.2); Bilirubin,Unconjugated 1.2 mg/dL (0.0-1.1); Blood Urea Nitrogen 12 mg/dL (7-17); Calcium 9.6 mg/dL (8.4-10.2); Carbon Dioxide 19 mmol/L (22-30); Chloride 106 mmol/L (98-107); Glucose 108 mg/dL (74-99); Non-African American GFR(CKD) >90 (>60 ml/min/1.73 sqM); Partial Thromboplastin Time 23.3 sec (22.0-30.0); Potassium 4.4 mmol/L (3.5-5.1); Prothrombin Time 10.3 sec (9.0-12.0); Sodium 136 mmol/L (137-145); Total Bilirubin 1.3 mg/dL (0.2-1.3); Total Protein 7.7 g/dL (6.3-8.2)
[2019-11-14 12:59] LABS: Appearance,Urine Clear (Clear); Bilirubin,Urine Negative (Negative); Blood,Urine Negative (Negative); Color,Urine Colorless; Glucose,Urine (UA) Negative (Negative); Ketones,Urine Negative (Negative); Leukocyte Esterase,Urine Negative (Negative); Nitrite,Urine Negative (Negative); PH, Urine 6.5 (5.0-8.0); Protein,Urine Negative (Negative); Specific Gravity,Urine 1.002 (1.001-1.035); Urobilinogen,Urine <2.0 mg/dL (<2.0)
--- NOTE | 2019-11-14 13:22 | US ---
EXAMINATION TYPE: US abdomen complete DATE OF EXAM: 11/14/2019 COMPARISON: 08/27/2015 CLINICAL HISTORY: RUQ pain. EXAM MEASUREMENTS: Liver Length: 13.4 cm Gallbladder Wall: .2 cm CBD: .7 cm Spleen: 7.9 cm Right Kidney: 9.7 x 3.9 x 4.8 cm Left Kidney: 10.3 x 4.3 x 4.2 cm Pancreas: wnl Liver: Hypoechoic area seen measuring 4.2 x 2.7 x 4.1cm Gallbladder: wnl Evidence for sonographic Pascual's sign: No CBD: Upper limits. Spleen: wnl Right Kidney: wnl Left Kidney: wnl Upper IVC: wnl Abd Aorta: wnl The intrahepatic portion of the IVC and proximal abdominal aorta are within normal limits. There is no evidence of cholelithiasis. Common bile duct is unremarkable. The visualized portions of the thomas creas are homogenous. The spleen is unremarkable. Kidneys are symmetric and free of hydronephrosis. No renal lesions are seen. IMPRESSION: Masslike area within the liver requires further evaluation with contrast-enhanced CT.
[2019-11-14] MEDS ORDERED: LORazepam 2 MG/ML INJ IV STA (13:39)
--- NOTE | 2019-11-14 13:49 | XR ---
EXAMINATION TYPE: XR chest 2V DATE OF EXAM: 11/14/2019 COMPARISON: 08/04/2017 HISTORY: Chest pain TECHNIQUE: Frontal and lateral views of the chest are obtained. FINDINGS: There is no focal air space opacity. No evidence for pneumothorax. No pleural effusion. The cardiac silhouette size is within normal limits. The osseous structures are grossly intact. IMPRESSION: 1. No acute cardiopulmonary process.
[2019-11-14] MEDS ORDERED: ONDANSETRON 4 MG/2 ML VIAL IVP PRN (13:54)
[2019-11-14] MEDS ORDERED: NALOXONE 0.4 MG/ML 1 ML VIAL IV PRN (13:54)
[2019-11-14] MEDS ORDERED: ACETAMINOPHEN TAB 325 MG TAB PO PRN (13:54)
[2019-11-14] MEDS: ALPRAZolam 0.25 MG TAB PO PRN ×2 (15:22→22:57)
[2019-11-14] MEDS: SODIUM CHLORIDE 0.9% 1,000 ML IV SCH (15:23)
[2019-11-14] MEDS ORDERED: IOPAMIDOL CONTRAST (ORAL USE) VIAL PO PRN (21:11)
--- NOTE | 2019-11-14 21:19 | P.HPIM ---
History of Present Illness H&P Date: 11/14/19 Chief Complaint: Abdominal pain This is physical and 44-year-old white female who for the last 6 months and has been having vague right upper quadrant pain. 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 However, this morning she felt lightheaded and dizzy. No right upper quadrant abdominal pain was noted but during this workup, she was found to have a 4 x 3 x 4 cm masslike lesion in the liver. This is now being worked up. I will go ahead and order computed tomography scan of the abdomen with contrast. No fever or chills. Food is not necessary provocative of pain. She has decent appetite has been exercising appropriately. No family history of liver issues. She denies any illicit substance abuse. There is ethanol use but not excessive. Review of Systems Constitutional: Denies chills, Denies fever Eyes: denies blurred vision, denies pain Ears, nose, mouth and throat: Denies headache, Denies sore throat Respiratory: Denies cough Gastrointestinal: Reports abdominal pain, Reports heartburn, Denies melena, Denies nausea, Denies vomiting Genitourinary: Denies dysuria, Denies hematuria Past Medical History Past Medical History: No Reported History Additional Past Medical History / Comment(s): scoliosis, herniated disc, right breast lumpectomy 20 years ago benign History of Any Multi-Drug Resistant Organisms: None Reported Past Surgical History: Appendectomy Additional Past Surgical History / Comment(s): uterine ablation, right lumpectomy which was negative Past Anesthesia/Blood Transfusion Reactions: No Reported Reaction Additional Past Anesthesia/Blood Transfusion Reaction / Comment(s): pt states no reactions Past Psychological History: No Psychological Hx Reported Smoking Status: Current some day smoker Past Alcohol Use History: Occasional Additional Past Alcohol Use History / Comment(s): pt states she "Maybe smokes 1pack/month" Past Drug Use History: None Reported - Past Family History Mother Family Medical History: Cancer Additional Family Medical History / Comment(s): nonhodgkins lymphoma Father Family Medical History: Cancer Additional Family Medical History / Comment(s): CLL leukemia Medications and Allergies Home Medications Medication Instructions Recorded Confirmed Type Cholecalciferol (Vitamin D3) 2,000 unit PO DAILY 09/14/18 11/14/19 History [Vitamin D3] Multivitamins, Thera [Multivitamin 1 tab PO DAILY 09/14/18 11/14/19 History (formulary)] Turmeric Root Extract [Turmeric] 500 mg PO DAILY 09/14/18 11/14/19 History Elderberry Fruit and Flower [Black 1 each PO DAILY 11/14/19 11/14/19 History Elderberry 575 mg Cap] Omeprazole [PriLOSEC] 20 mg PO AC-BID PRN 11/14/19 11/14/19 History Allergies Allergy/AdvReac Type Severity Reaction Status Date / Time NSAIDS (Non-Steroidal Allergy Anaphylaxis Verified 11/14/19 13:26 Anti-Inflamma Sulfa (Sulfonamide Allergy Rash/Hives Verified 11/14/19 13:26 Antibiotics) Physical Exam Vitals: Vital Signs Temp Pulse Pulse Resp BP BP Pulse Ox 11/14/19 20:30 104 H 16 11/14/19 19:54 16 138/89 97 11/14/19 15:15 98.9 F 104 H 16 140/86 98 11/14/19 14:14 98.7 F 99 18 154/83 98 11/14/19 11:51 97.9 F 113 H 16 184/81 99 Intake and Output 11/14/19 11/14/19 11/14/19 06:59 14:59 22:59 Intake Total 500 Balance 500 Intake: Oral 500 Other: Voiding Method Toilet # Voids 1 Weight 70.307 kg 70.307 kg - Constitutional General appearance: no acute distress - EENT Eyes: EOMI - Neck Neck: no lymphadenopathy - Respiratory Respiratory: bilateral: CTA - Cardiovascular Rhythm: regular Heart sounds: normal: S1, S2 Abnormal Heart Sounds: no S3 Gallop - Gastrointestinal General gastrointestinal: soft, no tenderness - Neurologic Neurologic: CNII-XII intact Results CBC & Chem 7: 11/14/19 12:29 11/14/19 12:29 Labs: Abnormal Lab Results - Last 24 Hours (Table) 11/14/19 11/14/19 11/14/19 Range/Units 12:02 12:29 12:29 Neutrophils # 7.8 H (1.3-7.7) k/uL Sodium 136 L (137-145) mmol/L Carbon Dioxide 19 L (22-30) mmol/L Glucose 108 H (74-99) mg/dL POC Glucose (mg/dL) 119 H (75-99) mg/dL Unconjugated Bilirubin 1.2 H (0.0-1.1) mg/dL Thrombosis Risk Factor Assmnt - Choose All That Apply Any of the Below Risk Factors Present?: Yes Each Factor Represents 1 point: Age 41-60 years, Varicose veins Other Risk Factors: Yes Each Risk Factor Represents 2 Points: Malignancy Thrombosis Risk Factor Assessment Total Risk Factor Score: 4 Thrombosis Risk Factor Assessment Level: Moderate Risk Assessment and Plan (1) Liver mass Current Visit: Yes Status: Acute Code(s): R16.0 - HEPATOMEGALY, NOT ELSEWH ERE CLASSIFIED SNOMED Code(s): 444370745 Plan: Computed tomography scan of abdomen with contrast to be ordered. We will go ahead and await GI input. We will consult surgical team if necessary. Question need for tissue biopsy if computed tomography scan shows significant issue.
--- NOTE | 2019-11-14 23:05 | CT ---
EXAMINATION TYPE: CT abdomen w con DATE OF EXAM: 11/14/2019 COMPARISON: 08/25/2015 HISTORY: Liver mass CT DLP: mGycm Automated exposure control for dose reduction was used. CONTRAST: The patient was injected with IV contrast Isovue 100 mL. Images were obtained from the diaphragm to t he iliac crests with oral and IV contrast. FINDINGS: The lung bases are clear. There is no pleural effusion. Heart size is normal. There is no pericardial effusion. Stomach appears normal. spleen pancreas gallbladder appear normal. Bile ducts are not dila simone. There is an approximate 4 cm somewhat rounded area of increased attenuation near the hanna hepat is in the right lobe of the liver on the initial contrast images. The delayed images show this has de creased attenuation relative to the remainder of the liver. There is no adrenal mass. Kidneys show multiple discrete small calculi that measure up to 5 mm. There is no hydronephrosis. Delayed images show normal renal excretion. There is no retroperitoneal adenop athy. Ureters are not dilated. There is multilevel spondylosis in the lumbar spine with disc space narrowing and spurring at L3-4 L4 -5. There is a mild thoracolumbar levoscoliosis. There is some lateral subluxation of L3 in relation to L4 to the left side. There is no mesenteric edema. There is no ascites. There is no sign of free air. IMPRESSION: Subtle mass in the right lobe of the liver as described above. This mass appears to be present in ret rospect on the CT scan of 08/25/2015 and not changed in size. This could be a focal nodular hyperplasi a. In any event the lesion is benign with more than 4 years of stability. Extensive bilateral renal nonobstructing calculi similar to old exam.
[2019-11-15 09:33] LABS: Basophils # (A) 0.1 k/uL (0-0.2); Basophils % (A) 1 %; Eosinophils # (A) 0.1 k/uL (0-0.7); Eosinophils % (A) 2 %; HCT 43.4 % (34.0-46.0); Lymphocytes # (A) 1.4 k/uL (1.0-4.8); Lymphocytes % (A) 15 %; MCH 30.3 pg (25.0-35.0); MCHC 32.3 g/dL (31.0-37.0); Mean Platelet Volume 6.9; Monocytes # (A) 0.5 k/uL (0-1.0); Monocytes % (A) 6 %; Neutrophils # (A) 6.7 k/uL (1.3-7.7); Neutrophils % (A) 75 %; Platelet Count 279 k/uL (150-450); RBC 4.62 m/uL (3.80-5.40); RDW 12.1 % (11.5-15.5); WBC 8.9 k/uL (3.8-10.6)
[2019-11-15 09:48] LABS: ALT 18 U/L (4-34); AST 23 U/L (14-36); African American GFR (CKD) >90 (>60 ml/min/1.73 sqM); Albumin 4.2 g/dL (3.5-5.0); Alkaline Phosphatase 49 U/L (38-126); Anion Gap 6 mmol/L; Blood Urea Nitrogen 6 mg/dL (7-17); Calcium 9.4 mg/dL (8.4-10.2); Carbon Dioxide 21 mmol/L (22-30); Chloride 110 mmol/L (98-107); Glucose 104 mg/dL (74-99); Non-African American GFR(CKD) >90 (>60 ml/min/1.73 sqM); Potassium 4.5 mmol/L (3.5-5.1); Sodium 137 mmol/L (137-145); Total Bilirubin 1.7 mg/dL (0.2-1.3); Total Protein 6.7 g/dL (6.3-8.2)
[2019-11-15] MEDS: SODIUM CHLORIDE 0.9% 1,000 ML IV SCH (09:52)
[2019-11-15] MEDS: ALPRAZolam 0.25 MG TAB PO PRN (13:31)
[2019-11-15] MEDS: PANTOPRAZOLE 40 MG/10 ML VIAL IVP SCH ×2 (13:34→18:48)
--- NOTE | 2019-11-15 13:54 | P.GSCN ---
History of Present Illness Consult date: 11/15/19 Reason for Consult: Liver mass History of present illness: 44-year-old female known to our service. Patient has had complaints for the last 6 months of intermittent right upper quadrant pain. Seems to correlate with her menstrual cycle. Sometimes wakes her from sleep. Usually worse in the evening. Nonradiating. Associated with nausea but no vomiting. Describes a tightness. No fevers. Underwent ultrasound last night showing a 4 cm liver mass. CAT scan then performed confirming a subtle mass in the liver. Per radiology this was visualized on the CAT scan performed 4 years ago. Benign nature emphasized. Ultrasound was performed showing no evidence of cholecystitis or gallstones. Patient denies any change in the color of her skin urine or stool. Patient with no history of significant alcohol use. Minimal tobacco use. No weight loss. No GI symptoms other than described. Review of Systems The patient denies any acute changes in vision or hearing, no dysphagia or odynophagia, no chest pain or shortness of breath, no dysuria or hematuria, no headache, no runny nose, no rectal bleeding or melena, no unexplained weight loss Past Medical History Past Medical History: No Reported History Additional Past Medical History / Comment(s): scoliosis, herniated disc, right breast lumpectomy 20 years ago benign History of Any Multi-Drug Resistant Organisms: None Reported Past Surgical History: Appendectomy Additional Past Surgical History / Comment(s): uterine ablation, right lumpectomy which was negative Past Anesthesia/Blood Transfusion Reactions: No Reported Reaction Additional Past Anesthesia/Blood Transfusion Reaction / Comm: pt states no reactions Past Psychological History: No Psychological Hx Reported Smoking Status: Current some day smoker Past Alcohol Use History: Occasional Additional Past Alcohol Use History / Comment(s): pt states she "Maybe smokes 1pack/month" Past Drug Use History: None Reported - Past Family History Mother Family Medical History: Cancer Additional Family Medical History / Comment(s): nonhodgkins lymphoma Father Family Medical History: Cancer Additional Family Medical History / Comment(s): CLL leukemia Medications and Allergies Home Medications Medication Instructions Recorded Confirmed Type Cholecalciferol (Vitamin D3) 2,000 unit PO DAILY 09/14/18 11/14/19 History [Vitamin D3] Multivitamins, Thera [Multivitamin 1 tab PO DAILY 09/14/18 11/14/19 History (formulary)] Turmeric Root Extract [Turmeric] 500 mg PO DAILY 09/14/18 11/14/19 History Elderberry Fruit and Flower [Black 1 each PO DAILY 11/14/19 11/14/19 History Elderberry 575 mg Cap] Omeprazole [PriLOSEC] 20 mg PO AC-BID PRN 11/14/19 11/14/19 History Allergies Allergy/AdvReac Type Severity Reaction Status Date / Time NSAIDS (Non-Steroidal Allergy Anaphylaxis Verified 11/14/19 13:26 Anti-Inflamma Sulfa (Sulfonamide Allergy Rash/Hives Verified 11/14/19 13:26 Antibiotics) Surgical - Exam Vital Signs Temp Pulse Resp BP Pulse Ox 97.9 F 113 H 16 184/81 99 11/14/19 11:51 11/14/19 11:51 11/14/19 11:51 11/14/19 11:51 11/14/19 11:51 Physical exam: General: Well-developed, well-nourished HEENT: Normocephalic, sclerae nonicteric Abdomen: Nontender, nondistended Extremities: No edema Neuro: Alert and oriented Results - Labs 11/15/19 09:14 11/15/19 09:14 Abnormal Lab Results - Last 24 Hours (Table) 11/15/19 Range/Units 09:14 Chloride 110 H (98-107) mmol/L Carbon Dioxide 21 L (22-30) mmol/L BUN 6 L (7-17) mg/dL Glucose 104 H (74-99) mg/dL Total Bilirubin 1.7 H (0.2-1.3) mg/dL Diabetes panel 11/15/19 Range/Units 09:14 Sodium 137 (137-145) mmol/L Potassium 4.5 (3.5-5.1) mmol/L Chloride 110 H (98-107) mmol/L Carbon Dioxide 21 L (22-30) mmol/L BUN 6 L (7-17) mg/dL Creatinine 0.55 (0.52-1.04) mg/dL Glucose 104 H (74-99) mg/dL Calcium 9.4 (8.4-10.2) mg/dL AST 23 (14-36) U/L ALT 18 (4-34) U/L Alkaline Phosphatase 49 (38-126) U/L Total Protein 6.7 (6.3-8.2) g/dL Albumin 4.2 (3.5-5.0) g/dL Calcium panel 11/15/19 Range/Units 09:14 Calcium 9.4 (8.4-10.2) mg/dL Albumin 4.2 (3.5-5.0) g/dL Pituitary panel 11/15/19 Range/Units 09:14 Sodium 137 (137-145) mmol/L Potassium 4.5 (3.5-5.1) mmol/L Chloride 110 H (98-107) mmol/L Carbon Dioxide 21 L (22-30) mmol/L BUN 6 L (7-17) mg/dL Creatinine 0.55 (0.52-1.04) mg/dL Glucose 104 H (74-99) mg/dL Calcium 9.4 (8.4-10.2) mg/dL Adrenal panel 11/15/19 Range/Units 09:14 Sodium 137 (137-145) mmol/L Potassium 4.5 (3.5-5.1) mmol/L Chloride 110 H (98-107) mmol/L Carbon Dioxide 21 L (22-30) mmol/L BUN 6 L (7-17) mg/dL Creatinine 0.55 (0.52-1.04) mg/dL Glucose 104 H (74-99) mg/dL Calcium 9.4 (8.4-10.2) mg/dL Total Bilirubin 1.7 H (0.2-1.3) mg/dL AST 23 (14-36) U/L ALT 18 (4-34) U/L Alkaline Phosphatase 49 (38-126) U/L Total Protein 6.7 (6.3-8.2) g/dL Albumin 4.2 (3.5-5.0) g/dL Assessment and Plan (1) Liver mass Narrative/Plan: 44-year-old female with mass right lobe of liver near hanna hepatis. Favor MRI at this point. Await GI evaluation. Stressed to the patient the likely benign nature of this lesion. Etiology for the patient's right upper quadrant pain remains unclear. Options of further gallbladder evaluation with HIDA scan discussed. She and I both would prefer to obtain more information regarding the liver lesion prior to doing so. Current Visit: Yes Status: Acute Code(s): R16.0 - HEPATOMEGALY, NOT ELSEWHERE CLASSIFIED SNOMED Code(s): 109490848
[2019-11-15 14:02] VITALS: RESP 20
[2019-11-15 16:49] VITALS: PULSE 71; TEMP 99.4
[2019-11-15 16:54] VITALS: BP 134/80
--- NOTE | 2019-11-15 17:45 | MR ---
EXAMINATION TYPE: MR liver wo/w con DATE OF EXAM: 11/15/2019 COMPARISON: None HISTORY: liver lesion seen on CT/US CONTRAST: Standard multiplanar, multisequence MRI departmental protocol utilizing 7 mL intravenous Gadavist ingrid olinium contrast. There is a 4.6 x 3.2 cm oval-shaped discrete mass in the posterior right lobe of the liver adjacent t o the caudate lobe. Lesion has slight increased signal on T2 in relation to the remainder of the live r. The lesion has mild enhancement in relation to the remainder of the liver. There is rapid washout. This is not a hemangioma. The enhancement pattern of the lesion is fairly uniform that suggests radha gn disease. The bile ducts are not dilated. Kidneys have normal size and contour. There is no hydronephrosis. There is no evidence of retroperito rose adenopathy. Spleen and pancreas appear normal. Stomach appears normal. There is 2 cm low signal right adrenal mass without enhancement consistent with benign disease. There is no ascites. There is no evidence of pleural effusion. Heart size is normal. IMPRESSION: Enhancing mass in the right lobe of the liver with fairly uniform enhancement and slight increased si gnal on T2 images. Features are consistent with focal nodular hyperplasia. This lesion in retrospect is also present on old CT scan of 08/25/2015 and not changed in size and therefore benign.
--- NOTE | 2019-11-15 19:15 | P.DS ---
Providers Date of admission: 11/14/19 13:54 Expected date of discharge: 11/15/19 Attending physician: Aurelio Mosley Consults: 11/14/19 13:55 Consult Physician Routine Consulting Provider: Sara Zamorano Consult Reason/Comments: liver mass Do you want consulting provider notified?: Yes 11/15/19 10:27 Consult Physician Routine Consulting Provider: Robbi Dasilva Consult Reason/Comments: abdominal pain, Liver mass Do you want consulting provider notified?: Yes Primary care physician: Aurelio Mosley - Discharge Diagnosis(es) (1) Liver mass Current Visit: Yes Status: Acute Hospital Course: This is discharge summary 44-year-old white male who presented with right upper quadrant pain and was found to have 4 cm mass in the liver near the hanna hepatis. CT scan with contrast did reiterate this and we ended up doing an MRI to evaluate. It does appear to be benign in nature and she will be discharged in stable condition. HIDA scan has been considered. Multiple consultants are noted. We will follow-up in one week. Patient Condition at Discharge: Fair Plan - Discharge Summary Discharge Rx Participant: No New Discharge Prescriptions: New ALPRAZolam [Xanax] 0.25 mg PO Q8H PRN #30 tab PRN Reason: Anxiety Continue Turmeric Root Extract [Turmeric] 500 mg PO DAILY Cholecalciferol (Vitamin D3) [Vitamin D3] 2,000 unit PO DAILY Multivitamins, Thera [Multivitamin (formulary)] 1 tab PO DAILY Omeprazole [PriLOSEC] 20 mg PO AC-BID PRN PRN Reason: Gi Upset Elderberry Fruit and Flower [Black Elderberry 575 mg Cap] 1 each PO DAILY Discharge Medication List Cholecalciferol (Vitamin D3) [Vitamin D3] 2,000 unit PO DAILY 09/14/18 [History] Multivitamins, Thera [Multivitamin (formulary)] 1 tab PO DAILY 09/14/18 [History] Turmeric Root Extract [Turmeric] 500 mg PO DAILY 09/14/18 [History] Elderberry Fruit and Flower [Black Elderberry 575 mg Cap] 1 each PO DAILY 11/14/19 [History] Omeprazole [PriLOSEC] 20 mg PO AC-BID PRN 11/14/19 [History] ALPRAZolam [Xanax] 0.25 mg PO Q8H PRN #30 tab 11/15/19 [Rx] Follow up Appointment(s)/Referral(s): Aurelio Mosley MD [Primary Care Provider] - 1 Week Discharge Disposition: HOME SELF-CARE
--- NOTE | 2019-11-15 19:36 | CONS ---
CONSULTATION DATE OF DICTATION: 11/15/2019 REASON FOR CONSULTATION: Liver mass. HISTORY OF PRESENT ILLNESS: The patient is a 44-year-old pleasant white female who came into the emergency room with intermittent episodes of right upper quadrant abdominal pain on and off for the last 6-7 months' duration. She has these episodes once or twice a month and they last for a day or 2 and usually resolve. The pain is mostly in the epigastric and right upper quadrant area with some nausea but no emesis. Yesterday the pain was intense, and hence she came into the emergency room and subsequently had an ultrasound of the right upper quadrant done that showed a 4 cm mass. Subsequently a CT of the abdomen was performed which once again showed a 4.2 cm mass, and on comparison with a prior CT scan done 4 years ago, the mass did not increase in size. The differential diagnosis suggested by the radiologist was possible focal nodular hyperplasia. The patient in the meantime reports no nausea or vomiting, no weight loss. She denies any usage of control pills in the past. She is feeling better this morning. Dr. Dasilva has also been consulted for evaluation of right upper quadrant abdominal pain and rule out gallbladder pathology. PAST MEDICAL HISTORY: Chronic back pain. PAST SURGICAL HISTORY: Uterine ablation, right lumpectomy. HOME MEDICATIONS: Vitamin D3, multivitamin, omeprazole. ALLERGIES: NSAIDs. SOCIAL HISTORY: No smoking. No alcohol use. FAMILY HISTORY: Mother had non-Hodgkin's lymphoma. Father had CLL/leukemia. REVIEW OF SYSTEMS: CARDIOPULMONARY: No chest pain or shortness of breath. GENITOURINARY: No dysuria or hematuria. MUSCULOSKELETAL: Unremarkable. SKIN: Unremarkable. ENDOCRINE: Unremarkable. PSYCHIATRIC: Unremarkable. NEUROLOGY: Unremarkable. ENT/VISION: Unremarkable. CONSTITUTIONAL: No recent weight loss. No fever, chills, night sweats. PHYSICAL EXAMINATION: Vital signs are stable. Blood pressure 144/89, pulse rate 80, temperature 98.4. HEENT examination unremarkable. Conjunctivae pink. Sclerae anicteric. Oral cavity no lesions. NECK: No JVD or lymph node enlargement. CHEST: Clear to auscultation. HEART: Regular rate and rhythm. ABDOMEN: Soft. Bowel sounds are positive. No organomegaly. EXTREMITIES: No pedal edema. SKIN: No rashes. NEUROLOGIC: Alert and oriented x3. No focal deficits. LABS: WBC 10.3, hemoglobin 14.7. Bilirubin was 1.7 but unconjugated was 1.2. ALT, AST are within normal limits. Amylase and lipase are normal. IMPRESSION: 1. A 4 cm mass on the liver noted on recent ultrasound done yesterday, and subsequent CT scan of the abdomen confirmed a subtle mass. On comparison with a prior CT scan done 4 years ago, there was no significant change in the size of the mass, as per the radiologist. Differential diagnosis suggested by the radiologist was possible FNH. 2. Intermittent epigastric and right upper quadrant abdominal pain. Rule out upper GI pathology. Ultrasound did not show any evidence of gallstones. RECOMMENDATIONS: 1. Obtain MRI of the liver. 2. Continue Protonix 40 mg daily. 3. Further recommendations will follow based on MRI of the liver. Thank you for this consultation. MMODL / IJN: [id number] /
== END 2019-11-15 20:08 | disposition home or self-care (01) ==
LOC: EC 11:47 → 6PED 13:54
PROVIDERS: ADMIT Family Medicine; ATTEND Family Medicine
DX: R16.0 Hepatomegaly, not elsewhere classified (principal); R11.0 Nausea; R10.13 Epigastric pain; R10.11 Right upper quadrant pain; R42 Dizziness and giddiness; M41.9 Scoliosis, unspecified; M51.9 Unspecified thoracic, thoracolumbar and lumbosacral intervertebral disc disorder; F17.210 Nicotine dependence, cigarettes, uncomplicated; I83.90 Asymptomatic varicose veins of unspecified lower extremity; G89.29 Other chronic pain; M54.9 Dorsalgia, unspecified; Z03.818 Encounter for observation for suspected exposure to other biological agents ruled out; Z98.890 Other specified postprocedural states; Z88.6 Allergy status to analgesic agent; Z88.2 Allergy status to sulfonamides; Z90.49 Acquired absence of other specified parts of digestive tract; Z80.7 Family history of other malignant neoplasms of lymphoid, hematopoietic and related tissues; Z80.6 Family history of leukemia
CPT/HCPCS: 96375 ×2; 96376; 96374; 96361; 99285; 36415; 93005; 80053 ×2; 82248; 83690; 84484; 85025 ×2; 85610; 85730; 81003; 82105; 71046; 76700; 74160; 74183; G0378 ×2; U0003; J2060; J2405; C9113; A9585; Q9967

== ENCOUNTER → 2019-11-30 | Outpatient (CLI) | payer BC ==
--- NOTE | 2019-11-30 09:10 | NM ---
EXAMINATION TYPE: NM hepatobiliary w CCK DATE OF EXAM: 11/30/2019 COMPARISON: CT abdomen November 14, 2019. MRI liver November 15, 2019. HISTORY: Cholecystitis per order. Chronic right upper quadrant pain and heartburn-like symptoms per p atient. TECHNIQUE: After the intravenous administration of 4.6 mCi Tc 99m Mebrofenin hepatobiliary scintigrap hy is performed. Immediate images post injection. FINDINGS: There is satisfactory initial accumulation of tracer by the liver. The gallbladder is visualized wit hin 25 minutes. The small bowel activity is noted within 30 minutes. At one hour CCK was administer ed, patient was injected with 1.4 mcg of Kinevac, and gallbladder ejection fraction is calculated at 92 %, not deviated from the normal range. Therefore there is no scintigraphic evidence of cystic or common bile duct obstruction to suggest acute cholecystitis. IMPRESSION: Ejection fraction is 92%, some consider this abnormal or a hyperkinetic response.
== END | disposition home or self-care (01) ==
LOC: RADNMMAIN 07:02
PROVIDERS: ATTEND Surgery
DX: K81.1 Chronic cholecystitis (principal); R10.11 Right upper quadrant pain
CPT/HCPCS: 78227; A9537; J2805

== ENCOUNTER → 2019-12-27 | Outpatient (CLI) | payer BC ==
--- NOTE | 2019-12-27 09:04 | USB ---
Reason for exam: follow-up at short interval from prior study. History: Family history of breast cancer in grandmother at age 80. Benign US breast aspiration single LT of the left breast, March 14, 2019. Excisional biopsy of the right breast, 1997. Took hormonal contraceptives for 3 years beginning at age 17. Physical Findings: Nurse did not find any significant physical abnormalities on exam. US Breast Limited LT Technologist: Kaley Ovalle Left limited breast ultrasound including focal area of concern, retroareolar and axilla demonstrates a 0.3 x 0.3 x 0.2cm round, cystic, stable lesion at 10 o'clock and a 0.5 x 0.6 x 0.4cm oval, csytic lsion at 12 o'clock, new from prior. These results were verbally communicated with the patient and result sheet given to the patient on 12/27/19. ASSESSMENT: Benign, BI-RAD 2 RECOMMENDATION: Return to routine screening mammogram schedule for both breasts. Back on schedule.
== END | disposition home or self-care (01) ==
LOC: RADUSWWP 07:51
PROVIDERS: ATTEND Surgery
DX: R92.8 Other abnormal and inconclusive findings on diagnostic imaging of breast (principal)

== ENCOUNTER → 2020-03-06 | Outpatient (CLI) | payer BC ==
--- NOTE | 2020-03-08 12:12 | MM ---
Reason for exam: screening (asymptomatic). Last mammogram was performed 1 year ago. History: Family history of breast cancer in grandmother at age 80. Benign US breast aspiration single LT of the left breast, March 14, 2019. Excisional biopsy of the right breast, 1997. Took hormonal contraceptives for 3 years beginning at age 17. Physical Findings: A clinical breast exam by your physician is recommended on an annual basis and results should be correlated with mammographic findings. MG 3D Screening Mammo W/Cad Bilateral CC and MLO view(s) were taken. Prior study comparison: March 14, 2019, left breast MG diagnostic mammo LT wo CAD. February 22, 2019, left breast MG 3d work up w/cad LT. The breast tissue is extremely dense which could obscure a lesion on mammography. Previous mammotome biopsy in the left breast. No significant changes when compared with prior studies. ASSESSMENT: Benign, BI-RAD 2 RECOMMENDATION: Routine screening mammogram of both breasts in 1 year.
== END | disposition home or self-care (01) ==
LOC: RADMAMWWP 16:20
PROVIDERS: ATTEND Obstetrics & Gynecology
DX: Z12.31 Encounter for screening mammogram for malignant neoplasm of breast (principal)
CPT/HCPCS: 77063; 77067

== ENCOUNTER → 2020-04-19 | Outpatient (CLI) | payer BC ==
[2020-04-19 14:29] LABS: Basophils # (A) 0.1 k/uL (0-0.2); Basophils % (A) 1 %; Eosinophils # (A) 0.1 k/uL (0-0.7); Eosinophils % (A) 2 %; HCT 45.2 % (34.0-46.0); HGB 14.7 gm/dL (11.4-16.0); Lymphocytes # (A) 1.7 k/uL (1.0-4.8); Lymphocytes % (A) 23 %; MCH 31.2 pg (25.0-35.0); MCHC 32.5 g/dL (31.0-37.0); MCV 95.8 fL (80.0-100.0); Monocytes # (A) 0.5 k/uL (0-1.0); Monocytes % (A) 7 %; Neutrophils % (A) 66 %; Platelet Count 343 k/uL (150-450); RBC 4.71 m/uL (3.80-5.40); RDW 12.4 % (11.5-15.5); WBC 7.6 k/uL (3.8-10.6)
[2020-04-19 15:15] LABS: Prothrombin Time 10.6 sec (9.0-12.0)
[2020-04-19 20:04] LABS: Albumin 4.9 g/dL (3.80-4.90); Albumin/Globulin Ratio 2.33 (1.60-3.17); BUN/Creat Ratio 14.29 Ratio (12.00-20.00); Bilirubin, Conjugated 0.2 mg/dL (0.20-0.40); Bilirubin,Unconjugated 0.6 mg/dL; Calcium 9.9 mg/dL (8.7-10.3); Globulin 2.1 g/dL (1.6-3.3); Non-African American GFR(CKD) 106.1 (60.0-200.0); Potassium 4.3 mmol/L (3.5-5.5); Total Bilirubin 0.8 mg/dL (0.3-1.2)
== END | disposition home or self-care (01) ==
LOC: LABWHC1 13:35
PROVIDERS: ATTEND Radiology Diagnostic Radiology
DX: D13.4 Benign neoplasm of liver (principal)
CPT/HCPCS: 36415; 80048; 80076; 85025; 85610; 85730

== ENCOUNTER → 2021-02-21 | Outpatient (CLI) | payer BC, OTHER | END | disposition home or self-care (01) | LOC: LABWHC1 11:39 | PROVIDERS: ATTEND Emergency Medicine | DX: Z20.822 Contact with and (suspected) exposure to COVID-19 (principal) | CPT/HCPCS: 87635 ==

== ENCOUNTER → 2021-02-22 | Outpatient (CLI) | payer BC, OTHER | END | disposition home or self-care (01) | LOC: LABMAIN 12:16 | PROVIDERS: ATTEND Emergency Medicine | DX: Z20.822 Contact with and (suspected) exposure to COVID-19 (principal) | CPT/HCPCS: 87635 ==

== ENCOUNTER → 2021-04-01 | Outpatient (CLI) | payer BC ==
[2021-04-01 19:23] LABS: HCT 41.7 % (37.2-46.3); HGB 13.4 g/dL (12.0-15.0); MCH 30.5 pg (27.0-32.0); MCHC 32.1 g/dL (32.0-37.0); Mean Platelet Volume 9.2 fL (9.5-12.2); Platelet Count 361 X 10*3/uL (140-440); RBC 4.39 X 10*6/uL (4.10-5.20); RDW 12.1 % (11.5-14.5); WBC 7.85 X 10*3/uL (4.50-10.00)
[2021-04-01 20:19] LABS: ALT 25 U/L (8-44); AST 32 U/L (13-35); Albumin 4.7 g/dL (3.8-4.9); Albumin/Globulin Ratio 2.01 (1.60-3.17); Alkaline Phosphatase 72 U/L (41-126); BUN/Creat Ratio 16.67 Ratio (12.00-20.00); Bilirubin, Conjugated <0.20 mg/dL (0.20-0.40); Blood Urea Nitrogen 10.6 mg/dL (9.0-27.0); Calcium 9.5 mg/dL (8.7-10.3); Carbon Dioxide 23.5 mmol/L (21.6-31.8); Chloride 101 mmol/L (96-109); Globulin 2.4 g/dL (1.6-3.3); Glucose 92 mg/dL (70-110); Non-African American GFR(CKD) 108.8 (60.0-200.0); Potassium 4.4 mmol/L (3.5-5.5); Sodium 138 mmol/L (135-145); Total Protein 7.1 g/dL (6.2-8.2)
== END | disposition home or self-care (01) ==
LOC: LABWHC1 12:17
PROVIDERS: ATTEND Radiology Diagnostic Radiology
DX: D13.4 Benign neoplasm of liver (principal)
CPT/HCPCS: 36415; 80048; 80076; 85027

== ENCOUNTER → 2021-04-03 | Outpatient (CLI) | payer BC ==
--- NOTE | 2021-04-05 10:33 | CT ---
EXAMINATION TYPE: CT abdomen wo/w con DATE OF EXAM: 04/03/2021 HISTORY: Hepatic adenoma CT DLP: 698.40mGycm Automated Exposure Control for Dose Reduction was Utilized. CONTRAST: CT scan of the abdomen is performed with oral and without and with IV Contrast, patient injected with 100 ml mL of Isovue 300. COMPARISON: MRI liver November 15, 2019. CT abdomen November 14, [address] August 25, 2015 FINDINGS: LUNG BASES: No significant abnormality is appreciated. LIVER/GB: Exam slightly suboptimal and is not performed under dedicated liver imaging protocol. Hypoe choic lesion deep in the posterior right hepatic lobe on noncontrast CT measures 2.7 x 3.1 cm series 3 image 19 slightly smaller in appearance versus MRI. Dynamic postcontrast imaging shows this area is slightly heterogeneously hyperdense relative to the remainder of the liver is somewhat poorly define d on the initial postcontrast images which already show contrast in the portal veins and hepatic vein s. Delayed phase images show this to have washout with lower signal versus the adjacent liver. On del ayed images there is better visualized posterior inferior extension. Still appears smaller in size fr om prior November 14, 2019 CT series 5 image 20. No new solid or cystic intrahepatic masses. No new surrou nding ascites. PANCREAS: No significant abnormality is seen. SPLEEN: No significant abnormality is seen. ADRENALS: No significant abnormality is seen. Kidneys: Noncontrast images show innumerable small central renal medullary calcifications bilaterally . Postcontrast images show symmetric cortical medullary uptake and excretion without hydronephrosis s een bilaterally. BOWEL: Oral contrast does not reach colonic level. No suspicious small or large bowel dilatation. LYMPH NODES: No greater than 1cm abdominal lymph nodes are appreciated. OSSEOUS STRUCTURES: Levoconvex scoliosis centered at L2 level redemonstrated. Moderate to severe disc space narrowing right L4-L5 level redemonstrated. Facet arthropathy lower lumbar levels again seen. OTHER: No significant additional abnormality is seen. IMPRESSION: Lesion of concern right liver suspected adenoma suboptimally evaluated on this study. It appears smaller in size from most recent CT and MRI 2019. No new concerning masses noted.
== END | disposition home or self-care (01) ==
LOC: RADCTMAIN 17:32
PROVIDERS: ATTEND Radiology Diagnostic Radiology
DX: D13.4 Benign neoplasm of liver (principal)
CPT/HCPCS: 74170; Q9967

== ENCOUNTER → 2021-04-12 | Outpatient (CLI) | payer BC ==
--- NOTE | 2021-04-15 10:45 | MM ---
Reason for exam: screening (asymptomatic). Last mammogram was performed 1 year and 1 month ago. History: Family history of breast cancer in grandmother at age 80. Benign US breast aspiration single LT of the left breast, March 14, 2019. Excisional biopsy of the right breast, 1997. Took hormonal contraceptives for 3 years beginning at age 17. Physical Findings: A clinical breast exam by your physician is recommended on an annual basis and results should be correlated with mammographic findings. MG 3D Screening Mammo W/Cad Bilateral CC and MLO view(s) were taken. Prior study comparison: March 06, 2020, bilateral MG 3d screening mammo w/cad. March 14, 2019, left breast MG diagnostic mammo LT wo CAD. The breast tissue is heterogeneously dense. This may lower the sensitivity of mammography. New calcifications upper outer right breast zone B. This finding is changed when compared with previous exams. ASSESSMENT: Incomplete: need additional imaging evaluation, BI-RAD 0 RECOMMENDATION: Special view mammogram of the right breast. [facility] will attempt to contact patient to return for supplemental views.
== END | disposition home or self-care (01) ==
LOC: RADMAMWWP 10:26
PROVIDERS: ATTEND Obstetrics & Gynecology
DX: Z12.31 Encounter for screening mammogram for malignant neoplasm of breast (principal); Z80.3 Family history of malignant neoplasm of breast
CPT/HCPCS: 77063; 77067

== ENCOUNTER → 2021-04-16 | Outpatient (CLI) | payer BC ==
--- NOTE | 2021-04-16 13:53 | MM ---
Reason for exam: additional evaluation requested from abnormal screening. Last mammogram was performed less than 1 month ago. History: Family history of breast cancer in grandmother at age 80. Benign US breast aspiration single LT of the left breast, March 14, 2019. Excisional biopsy of the right breast, 1997. Took hormonal contraceptives for 3 years beginning at age 17. Physical Findings: Nurse did not find any significant physical abnormalities on exam. MG 3D Work Up W/Cad RT CC and MLO view(s) were taken of the right breast. Prior study comparison: April 12, 2021, bilateral MG 3d screening mammo w/cad. March 06, 2020, bilateral MG 3d screening mammo w/cad. The breast tissue is heterogeneously dense. This may lower the sensitivity of mammography. Finding: There is a 20 mm spiculated irregular mass located 3 cm from the nipple in the upper outer quadrant, anterior position of the right breast persists with suspicious calcifications. These results were verbally communicated with the patient and result sheet given to the patient on 04/16/21. ASSESSMENT: Incomplete: need additional imaging evaluation, BI-RAD 0 RECOMMENDATION: Ultrasound of the right breast.
--- NOTE | 2021-04-16 13:56 | USB ---
Reason for exam: additional evaluation requested from abnormal screening. History: Family history of breast cancer in grandmother at age 80. Benign US breast aspiration single LT of the left breast, March 14, 2019. Excisional biopsy of the right breast, 1997. Took hormonal contraceptives for 3 years beginning at age 17. US Breast Workup Limited RT Right limited breast ultrasound including focal area of concern, retroareolar and axilla demonstrates a 0.4 x 0.5 x 0.4cm oval, cystic lesion at 10 o'clock, a 0.4 x 0.3 x 0.2cm oval, cystic lesion at 10 o'clock, adjacent benign cysts, a 1.3 x 1.8 x 1.4cm irregular, hypoechoic, vascular lesion at 11 o'clock for which a biopsy is recommended and a 1.1 x 1.2 x 0.8cm oval, benign lymph node at the axilla. These results were verbally communicated with the patient and result sheet given to the patient on 04/16/21. ASSESSMENT: Suspicious, BI-RAD 4 RECOMMENDATION: Ultrasound core biopsy of the right breast. Called Dr. Salter's office with mammographic findings and has scheduled an appointment for the patient for 06/05/21 at 4:[address] Dasilva. Biopsy scheduled for 05/09/21 at 10:30. PRELIMINARY REPORT CALLED AND FAXED TO DR. DASILVA ON 04/16/21.
== END | disposition home or self-care (01) ==
LOC: RADMAMWWP 10:30
PROVIDERS: ATTEND Obstetrics & Gynecology
DX: N60.01 Solitary cyst of right breast (principal); N63.11 Unspecified lump in the right breast, upper outer quadrant; Z80.3 Family history of malignant neoplasm of breast
CPT/HCPCS: 77061; 77065

== ENCOUNTER → 2021-07-09 | Outpatient (CLI) | payer BC ==
--- NOTE | 2021-07-09 10:00 | ECHOF ---
Referral Reason:Z01.818 pre chemo MEASUREMENTS -------- HEIGHT: 167.6 cm WEIGHT: 74.8 kg BP: RVIDd: 2.4 cm (< 3.3) IVSd: 1.0 cm (0.6 - 1.1) LVIDd: 4.2 cm (3.9 - 5.3) LVPWd: 1.0 cm (0.6 - 1.1) IVSs: 1.5 cm LVIDs: 1.9 cm LVPWs: 1.7 cm Ao Diam: 2.8 cm (2.0 - 3.7) AV Cusp: 1.9 cm (1.5 - 2.6) LA Diam: 2.6 cm (2.7 - 3.8) MV EXCURSION: 14.230 mm (> 18.000) MV EF SLOPE: 40 mm/s (70 - 150) EPSS: 1.0 cm MV E Hawk: 0.99 m/s MV DecT: 121 ms MV A Hawk: 1.12 m/s MV E/A Ratio: 0.89 RAP: 5.00 mmHg RVSP: 11.24 mmHg FINDINGS -------- This was a technically adequate study. The left ventricular size is normal. Left ventricular wall thickness is normal. Overall left vent ricular systolic function is normal with, an EF between 55 - 60 %. The right ventricle is normal in size. The left atrial size is normal. The right atrial size is normal. The aortic valve is trileaflet and appears structurally normal. There is trace mitral regurgitation. Cannot exclude mitral valve prolapse. The tricuspid valve appears structurally normal. Trace tricuspid regurgitation present. Right zuleima tricular systolic pressure is normal at < 35 mmHg. There is no pulmonic regurgitation present. The aortic root size is normal. Normal inferior vena cava with normal inspiratory collapse consistent with estimated right atrial pre ssure of 5 mmHg. There is no pericardial effusion. CONCLUSIONS -------- 1. The left ventricular size is normal. 2. Left ventricular wall thickness is normal. 3. Overall left ventricular systolic function is normal with, an EF between 55 - 60 %. 4. There is trace mitral regurgitation. 5. Cannot exclude mitral valve prolapse. 6. Trace tricuspid regurgitation present. 7. There is no pericardial effusion. BULB SORTER: Kely Mendoza [facility]
== END | disposition home or self-care (01) ==
LOC: RADECHMAIN 08:37
PROVIDERS: ATTEND Internal Medicine Hematology & Oncology
DX: Z01.818 Encounter for other preprocedural examination (principal); I08.1 Rheumatic disorders of both mitral and tricuspid valves
CPT/HCPCS: 93306

== ENCOUNTER 2021-07-22 07:20 | Day surgery (SDC) | payer BC ==
[2021-07-18 10:58] VITALS: BMI 27.4
[~2021-07-22 07:20] MED LIST: ACETAMINOPHEN TAB 500 MG TAB PO PRN; HEPARIN SODIUM,PORCINE/PF 5,000 UNIT/0.5 ML SYRINGE SQ PRN; HYDROmorphone 0.5 MG/0.5 ML SYRINGE IVP PRN; LACTATED RINGERS 1,000 ML IV SCH; LIDOCAINE 1% (10MG/ML) FOR IV START INTRADERMA PRN; Pre Op ABX Message 1 EACH MISC MISCELLANE ONE
[2021-07-22] MEDS ORDERED: DEXAMETHASONE SOD PHOSPHATE 4 MG/ML 1 ML VIAL IV ONE (08:30)
--- NOTE | 2021-07-22 08:34 | P.GSHP ---
History of Present Illness H&P Date: 07/22/21 Chief Complaint: Right breast cancer 45-year-old female known to our service. Patient was recently diagnosed with right breast cancer. Patient underwent right breast lumpectomy with sentinel lymph node biopsy at [facility]. She was found to have lymph node positive disease. Patient will be started on adjuvant chemotherapy followed by radiation therapy. Here today for Port-A-Cath placement. Patient is requesting the port be placed on the right-hand side. Past Medical History Past Medical History: Cancer Additional Past Medical History / Comment(s): scoliosis, herniated disc, hepatic adenoma, RT BREAST CANCER History of Any Multi-Drug Resistant Organisms: None Reported Past Surgical History: Appendectomy, Breast Surgery, Uterine Ablation Additional Past Surgical History / Comment(s): right breast benign excisional biopsy, RT BREAST LUMPECTOMY AND SENTINAL NODE DISSECTION Past Anesthesia/Blood Transfusion Reactions: No Reported Reaction Additional Past Anesthesia/Blood Transfusion Reaction / Comment(s): pt states no reactions Smoking Status: Current some day smoker - Past Family History Mother Family Medical History: Cancer, Dementia Additional Family Medical History / Comment(s): nonhodgkins lymphoma Father Family Medical History: Cancer Additional Family Medical History / Comment(s): CLL leukemia Medications and Allergies Home Medications Medication Instructions Recorded Confirmed Type Multivitamins, Thera [Multivitamin 1 tab PO DAILY 09/14/18 07/18/21 History (formulary)] Allergies Allergy/AdvReac Type Severity Reaction Status Date / Time NSAIDS (Non-Steroidal Allergy Anaphylaxis Verified 07/22/21 07:52 Anti-Inflamma Sulfa (Sulfonamide Allergy Rash/Hives Verified 07/22/21 07:52 Antibiotics) Surgical - Exam Physical exam: General: Well-developed, well-nourished HEENT: Normocephalic, sclerae nonicteric Abdomen: Nontender, nondistended Extremities: No edema Neuro: Alert and oriented Right breast incisions are healing nicely Assessment and Plan (1) Breast cancer, right Narrative/Plan: 45-year-old female with right breast cancer we'll proceed with Port-A-Cath placement at this time. Risks of bleeding, infection, DVT, pneumothorax, catheter malfunction, anesthesia related complications were discussed. The patient understands and wishes to proceed. Tentatively plan placement on the r ight-hand side with plans for removal prior radiation treatment. I did reach out to Dr. Ge and am awaiting a call back from him regarding this. Current Visit: Yes Status: Acute Code(s): C50.911 - MALIGNANT NEOPLASM OF UNSP SITE OF RIGHT FEMALE BREAST SNOMED Code(s): 909264863
[2021-07-22] MEDS ORDERED: ONDANSETRON 4 MG/2 ML VIAL ONE (08:38)
[2021-07-22] MEDS ORDERED: LIDOCAINE 1% INJ 10MG/ML (20 ML MDV) ONE (10:03)
[2021-07-22] MEDS ORDERED: PROPOFOL 10 MG/ML 20 ML VIAL IV ONE (10:03)
[2021-07-22] MEDS ORDERED: fentaNYL (PF) 50 MCG/ML 2 ML AMP ONE (10:03)
[2021-07-22] MEDS ORDERED: MIDAZOLAM 2 MG/2 ML VIAL ONE (10:03)
[2021-07-22] MEDS ORDERED: HEPARIN SODIUM,PORCINE 100 UNIT/ML 5 ML VIAL IV ONE (10:24)
[2021-07-22] MEDS ORDERED: LIDOCAINE (PF) 10 MG/ML 2 ML VIAL SQ ONE ×2 (10:24)
[2021-07-22] MEDS ORDERED: NALOXONE 0.4 MG/ML 1 ML VIAL IV PRN (10:48)
[2021-07-22] MEDS ORDERED: traMADol 50 MG TAB PO PRN (10:48)
--- NOTE | 2021-07-22 10:49 | P.OP ---
Date of Procedure: 07/22/21 Procedure(s) Performed: PREOPERATIVE DIAGNOSIS: Right-sided breast cancer POSTOPERATIVE DIAGNOSIS: Same PROCEDURE: Port-A-Cath placement with fluoroscopic and ultrasound guidance SURGEON: Vidya EBL: Minimal ANESTHESIA: Sedation COMPLICATIONS: None OPERATIVE PROCEDURE: Patient was brought and placed on the operative table in the supine position. The patient was sedated per anesthesia that time. The chest and neck were prepped and draped in usual sterile fashion. The ultrasound probe was used to identify the location of the right internal jugular vein. The skin was localized with lidocaine. The Seldinger needle was advanced into the IJ under ultrasound guidance. The wire was advanced through the needle under fluoroscopic guidance into the superior vena cava. A port pocket was created in the right infraclavicular location. The catheter was tunneled from the wire entrance site to the port pocket. The port was then connected to the catheter. The dilator introducer was threaded over the guidewire. The guidewire and dilator were then removed. The catheter was advanced through the introducer and introducer was then removed. The tip was seen to be in the right atrial junction via fluoroscopy. A picture of the radiograph showing the tip at the radial digital junction was taken. Port was flushed with both saline and a Hep- Lock solution. There was good flow both in and out of the port. The port was sutured in underlying tissues using 3-0 silk sutures. The subcutaneous tissues were reapproximated using 3-0 Vicryl sutures and the skin at both locations using 4-0 Monocryl sutures. Skin glue and sterile dressings then applied. DISPOSITION: Stable to recovery room
[2021-07-22 11:09] VITALS: TEMP 97.5
[2021-07-22 11:14] VITALS: RESP 16
--- NOTE | 2021-07-22 11:40 | XR ---
EXAMINATION TYPE: XR chest 1V portable DATE OF EXAM: 07/22/2021 COMPARISON: 11/14/2019 HISTORY: Port placement TECHNIQUE: Single frontal view of the chest is obtained. FINDINGS: Right sided medi-port catheter with distal tip in the SVC. No pneumothorax. The cardiac silhouette size is within normal limits. The osseous structures are intact. IMPRESSION: 1. As above
--- NOTE | 2021-07-22 11:53 | FL ---
Fluoroscopy History: PORTACATH INSERTION PORTACATH INSERTION . 6 SEC FL TIME. 1 PIC ON SYN
[2021-07-22 12:17] VITALS: BP 156/91; PULSE 88
== END 2021-07-22 12:52 | disposition home or self-care (01) ==
LOC: OR 07:20
PROVIDERS: ATTEND Surgery
DX: C50.911 Malignant neoplasm of unspecified site of right female breast (principal); M41.9 Scoliosis, unspecified; Z90.49 Acquired absence of other specified parts of digestive tract; Z98.890 Other specified postprocedural states; F17.200 Nicotine dependence, unspecified, uncomplicated; Z81.8 Family history of other mental and behavioral disorders; Z80.7 Family history of other malignant neoplasms of lymphoid, hematopoietic and related tissues; Z80.6 Family history of leukemia; Z88.6 Allergy status to analgesic agent; Z88.2 Allergy status to sulfonamides
CPT/HCPCS: 81025; 77001; 71045; 36561; 76937; C1788; J2250; J2001 ×2; J1642; J1100; J0690; J2405; J3010; J2704; J1170; J1644

== ENCOUNTER → 2022-01-07 | Outpatient (CLI) | payer BC ==
[2022-01-08 01:21] LABS: African American GFR (CKD) 119.6 (60.0-200.0); Anion Gap 12.9 mmol/L (10.00-18.00); BUN/Creat Ratio 17.51 Ratio (12.00-20.00); Blood Urea Nitrogen 12.4 mg/dL (9.0-27.0); Calcium 9.7 mg/dL (8.7-10.3); Carbon Dioxide 23.9 mmol/L (20.0-27.5); Non-African American GFR(CKD) 103.2 (60.0-200.0); Potassium 4.2 mmol/L (3.5-5.5)
[2022-01-08 01:22] LABS: Basophils # (A) 0.09 X 10*3/uL (0.00-0.10); Basophils % (A) 1.2 %; Eosinophils # (A) 0.12 X 10*3/uL (0.04-0.35); Eosinophils % (A) 1.5 %; HCT 41.7 % (37.2-46.3); HGB 13.5 g/dL (12.0-15.0); Immature Grans, Automated 0.3 %; Lymphocytes # (A) 1.41 X 10*3/uL (0.90-5.00); Lymphocytes % (A) 18.1 %; MCH 32.5 pg (27.0-32.0); MCHC 32.4 g/dL (32.0-37.0); MCV 100.2 fL (80.0-97.0); Mean Platelet Volume 9.7 fL (9.5-12.2); Monocytes # (A) 1.09 X 10*3/uL (0.20-1.00); NRBC Per 100 WBC 0 /100 WBCS (0.0-0.0); Neutrophils # (A) 5.06 X 10*3/uL (1.80-7.70); Neutrophils % (A) 64.9 %; Platelet Count 370 X 10*3/uL (140-440); RBC 4.16 X 10*6/uL (4.10-5.20); RDW 13.3 % (11.5-14.5); WBC 7.79 X 10*3/uL (4.50-10.00)
== END | disposition home or self-care (01) ==
LOC: LABPAT 16:12
PROVIDERS: ATTEND Obstetrics & Gynecology
DX: Z01.812 Encounter for preprocedural laboratory examination (principal)
CPT/HCPCS: 80048; 85025

== ENCOUNTER 2022-01-16 07:29 | Day surgery (SDC) | payer BC ==
[2022-01-14 12:40] VITALS: BMI 27.4
--- NOTE | 2022-01-15 17:16 | P.HPOB ---
History of Present Illness H&P Date: 01/15/22 Chief Complaint: breast cancer 46 year old presents for TLH BSO using da nat and diagnostic cystoscopy for ER/CO + breast cancer. Review of Systems All systems: negative Constitutional: Denies chills, Denies fever Eyes: denies blurred vision, denies pain Ears, nose, mouth and throat: Denies headache, Denies sore throat Cardiovascular: Denies chest pain, Denies shortness of breath Respiratory: Denies cough Gastrointestinal: Denies abdominal pain, Denies diarrhea, Denies nausea, Denies vomiting Genitourinary: Denies dysuria, Denies hematuria Musculoskeletal: Denies myalgias Integumentary: Denies pruritus, Denies rash Neurological: Denies numbness, Denies weakness Psychiatric: Denies anxiety, Denies depression Endocrine: Denies fatigue, Denies weight change Past Medical History Past Medical History: Cancer Additional Past Medical History / Comment(s): scoliosis, herniated disc, hepatic adenoma, RT BREAST CANCER-HAD CHEMO-LAST TIME WAS 3 WEEKS AGO History of Any Multi-Drug Resistant Organisms: ESBL Date of last positivie culture/infection: 09/02/21 MDRO Source:: ESBL URINE Past Surgical History: Appendectomy, Breast Surgery, Uterine Ablation Additional Past Surgical History / Comment(s): right breast benign excisional biopsy, RT BREAST LUMPECTOMY AND SENTINAL NODE DISSECTION, PORT A CATH RT SIDE- Past Anesthesia/Blood Transfusion Reactions: No Reported Reaction Additional Past Anesthesia/Blood Transfusion Reaction / Comment(s): pt states no reactions Smoking Status: Former smoker - Past Family History Mother Family Medical History: Cancer, Dementia Additional Family Medical History / Comment(s): nonhodgkins lymphoma Father Family Medical History: Cancer Additional Family Medical History / Comment(s): CLL leukemia Medications and Allergies Home Medications Medication Instructions Recorded Confirmed Type Multivitamins, Thera [Multivitamin 1 tab PO DAILY 09/14/18 01/14/22 History (formulary)] Allergies Allergy/AdvReac Type Severity Reaction Status Date / Time NSAIDS (Non-Steroidal Allergy Anaphylaxis Verified 01/14/22 12:25 Anti-Inflamma Sulfa (Sulfonamide Allergy Rash/Hives Verified 01/14/22 12:25 Antibiotics) Exam Osteopathic Statement: *. No significant issues noted on an osteopathic structural exam other than those noted in the History and Physical/Consult. HEart: RRR Lungs: CTAB Abdomen: soft, nontender Extremeties: neg kayla's Assessment and Plan (1) Breast cancer Status: Acute Code(s): C50.919 - MALIGNANT NEOPLASM OF UNSP SITE OF UNSPECIFIED FEMALE BREAST SNOMED Code(s): 303878807 Plan: 1. [facility] BSO using da nat and diagnostic cystoscopy
[~2022-01-16 07:29] MED LIST changes: -ACETAMINOPHEN TAB 500 MG TAB PO PRN; +DEXAMETHASONE SOD PHOSPHATE 4 MG/ML 1 ML VIAL IV ONE; -HEPARIN SODIUM,PORCINE/PF 5,000 UNIT/0.5 ML SYRINGE SQ PRN; -LACTATED RINGERS 1,000 ML IV SCH; +MIDAZOLAM 2 MG/2 ML VIAL IV PRN; +ONDANSETRON 4 MG/2 ML VIAL IVP ONE; -Pre Op ABX Message 1 EACH MISC MISCELLANE ONE
[2022-01-16] MEDS ORDERED: LACTATED RINGERS 1,000 ML IV ONE (08:28)
[2022-01-16] MEDS ORDERED: GLYCOPYRROLATE 0.2 MG/ML 2 ML VIAL ONE (09:40)
[2022-01-16] MEDS ORDERED: NEOSTIGMINE 1 MG/ML 10 ML VIAL ONE (09:40)
[2022-01-16] MEDS ORDERED: ROCURONIUM 10 MG/ML (5 ML VIAL) IV ONE (09:40)
[2022-01-16] MEDS ORDERED: LIDOCAINE 2% INJ 20 MG/ML (2 ML VIAL) ONE (09:40)
[2022-01-16] MEDS ORDERED: PROPOFOL 10 MG/ML 20 ML VIAL IV ONE (09:40)
[2022-01-16] MEDS ORDERED: HYDROmorphone (PF) 1 MG/ML ONE (09:40)
[2022-01-16] MEDS ORDERED: SUCCINYLCHOLINE CHLORIDE 200 MG/10 ML VIAL IV ONE (09:40)
[2022-01-16] MEDS ORDERED: MIDAZOLAM 2 MG/2 ML VIAL ONE (09:40)
[2022-01-16] MEDS ORDERED: fentaNYL (PF) 50 MCG/ML 2 ML AMP ONE (09:40)
[2022-01-16] MEDS ORDERED: ACETAMINOPHEN IV (For NPO) 1,000 MG/100 ML VIAL ONE (09:40)
[2022-01-16] MEDS ORDERED: BUPIVACAINE (PF) 0.25% 30 ML VIAL SQ ONE ×2 (10:26→10:56)
[2022-01-16] MEDS: LACTATED RINGERS 1,000 ML IV SCH (11:28)
--- NOTE | 2022-01-16 11:33 | P.OP ---
Date of Procedure: 01/16/22 Preoperative Diagnosis: 1. ER/DC+ breast cancer Postoperative Diagnosis: 1. ER/DC+ Breast cancer Procedure(s) Performed: Total laparoscopic hysterectomy using da Mendoza and diagnostic cystoscopy Anesthesia: FEI Surgeon: Jayleen Salter Stringer Machine Tender #1: Corina Wilson Estimated Blood Loss (ml): 25 IV fluids (ml): 500 Urine output (ml): 200 Pathology: other (Uterus, cervix, bilateral fallopian tubes and ovaries) Condition: stable Disposition: PACU Operative Findings: Normal uterus, tubes, ovaries. Uterus sounded to 8 cm. Description of Procedure: Patient taken the operating room where general anesthesia was obtained without difficulty. She is prepped and draped in normal sterile fashion dorsal lithotomy position, legs placed in the Randy stirrups. Weighted speculum placed in the vagina and the anterior lip the cervix was grasped with single-tooth tenaculum. The uterus sounded to 8 cm and the cervix diameter was 3 cm. The appropriate manipulator tip and ring were placed on the Galina manipulator. The Galina manipulator was then placed in the uterus. Hall catheter was also placed. Attention was then turned to the abdomen and gloves were changed. A 5 mm supraumbilical incision was made the scalpel and a 5 mm optical trocar was placed under direct visualization. 10 cm to the right of this and 2 cm down a 5 mm incision was made and 8 mm da Mendoza port was placed under direct visualization. Same measurements on the opposite side of the patient's abdomen, the 5 mm incision was made and 8 mm da Mendoza port was placed under direct visualization. In the left upper quadrant a 10 mm incision was made and a 10 mm optical trocar was placed under direct visualization. The 5 mm optical trocar was then replaced with the 8 mm da Mendoza camera port. The robot was docked on patient's right side. The camera was introduced and then the monopolar curved scissor and [place] bipolar placed under direct visualization. I broke scrub and went to the physician console. The left infundibulopelvic ligament was cauterized with the [place] bipolar and cut with monopolar curved scissors. The left round ligament was cauterized with the [place] bipolar and cut with mo nopolar curved scissors. The posterior leaf of the broad ligament was taken down using the monopolar curved scissors. Anterior leaf of the broad ligament was then taken down using the monopolar curved scissors. The uterine artery was cauterized with the [place] bipolar and cut with monopolar curved scissors. The bladder flap was then started using the monopolar curved scissors. Attention was then turned to the right side of the patient's anatomy and the right infundibular pelvic ligament was cauterized with the Maryland bipolar and cut with monopolar curved scissors. The right round ligament was cauterized with the [place] bipolar and cut with monopolar curved scissors. Posterior leaf of the broad ligament was taken down using the monopolar curved scissors and the anterior leaf was taken down using the monopolar curved scissors. The uterine artery was cauterized the Maryland bipolar cut with monopolar curved scissors. The bladder flap was then finished on this side. Anterior colpotomy was made using the monopolar curved scissors. The rest of the uterus was from the vaginal cuff by following the ring around with the monopolar curved scissors through the uterosacral ligaments back to the anterior portion. Once the uterus and cervix were amputated they were pulled through the vaginal cuff. Hemostasis was assured. The instruments were changed for the Cardier forcep and the mary suture cut. The vaginal cuff was then closed using 2-O stratafix barbed suture in a running fashion. Hemostasis was again assured and the pelvis was irrigated. All instruments were removed from the abdomen and the robot was undocked. I scrubbed back in to perform a cystoscopy. There were jets from both ureteral orifices. The abdominal incisions were closed with 4-0 Vicryl in a subcuticular fashion. Patient tolerated the procedure well, sponge and instrument counts correct 2 and she was taken to recovery room in stable condition condition
[2022-01-16 11:40] VITALS: RESP 16
[2022-01-16] MEDS ORDERED: METOCLOPRAMIDE 5 MG/ML 2 ML VIAL IVP PRN (12:40)
[2022-01-16] MEDS ORDERED: ZOLPIDEM 5 MG TAB PO PRN (12:40)
[2022-01-16] MEDS ORDERED: ONDANSETRON 4 MG/2 ML VIAL IVP PRN (12:40)
[2022-01-16] MEDS: HEPARIN SODIUM,PORCINE/PF 5,000 UNIT/0.5 ML SYRINGE SQ SCH (17:29)
[2022-01-16] MEDS: HYDROcodone/APAP 7.5-325MG 1 EACH TAB PO PRN ×2 (17:32→23:16)
[2022-01-16] MEDS: SIMETHICONE 80 MG CHEWABLE PO PRN ×2 (18:06→23:17)
[2022-01-16] MEDS ORDERED: SENNOSIDES-DOCUSATE SODIUM 1 EACH TAB PO SCH (21:00)
[2022-01-17] MEDS: HEPARIN SODIUM,PORCINE/PF 5,000 UNIT/0.5 ML SYRINGE SQ SCH ×2 (04:53→07:54)
[2022-01-17 06:56] LABS: Basophils % (A) 0 %; Eosinophils # (A) 0.1 k/uL (0-0.7); Eosinophils % (A) 1 %; HCT 34.4 % (34.0-46.0); HGB 11.1 gm/dL (11.4-16.0); Lymphocytes % (A) 10 %; MCH 32.4 pg (25.0-35.0); MCHC 32.2 g/dL (31.0-37.0); MCV 100.4 fL (80.0-100.0); Mean Platelet Volume 7.3; Monocytes # (A) 0.7 k/uL (0-1.0); Monocytes % (A) 8 %; Neutrophils # (A) 7.5 k/uL (1.3-7.7); Neutrophils % (A) 80 %; Platelet Count 286 k/uL (150-450); RBC 3.43 m/uL (3.80-5.40); RDW 13.4 % (11.5-15.5); WBC 9.4 k/uL (3.8-10.6)
[2022-01-17] MEDS: HYDROcodone/APAP 7.5-325MG 1 EACH TAB PO PRN (07:04)
[2022-01-17] MEDS: SIMETHICONE 80 MG CHEWABLE PO PRN (07:04)
[2022-01-17] MEDS: LACTATED RINGERS 1,000 ML IV SCH (07:08)
--- NOTE | 2022-01-17 07:50 | P.DS ---
Providers Date of admission: 01/16/2022 Expected date of discharge: 01/17/22 Attending physician: Jayleen Salter Primary care physician: Aurelio Mosley - Discharge Diagnosis(es) (1) Breast cancer Current Visit: No Status: Chronic (2) History of robot-assisted laparoscopic hysterectomy Current Visit: Yes Status: Acute Hospital Course: Patient presented for a TLHBSO using da Mendoza due to ER/PA positive breast cancer. She underwent this procedure without complication. Patient denies naus ea, vomiting, chest pain, shortness of breath or any calf pain today postoperative day #1. She is ambulating voiding without difficulty. She is passing flatus and tolerating regular diet. Patient would be discharged home postoperative day #1 in stable condition to follow-up with me in 3 weeks. Plan - Discharge Summary Discharge Rx Participant: No New Discharge Prescriptions: New HYDROcodone/APAP 7.5-325MG [Milton 7.5-325] 1 each PO Q6HR PRN #12 tab PRN Reason: Pain No Action Multivitamins, Thera [Multivitamin (formulary)] 1 tab PO DAILY Discharge Medication List Multivitamins, Thera [Multivitamin (formulary)] 1 tab PO DAILY 09/14/18 [History] HYDROcodone/APAP 7.5-325MG [Milton 7.5-325] 1 each PO Q6HR PRN #12 tab 01/17/22 [Rx] Follow up Appointment(s)/Referral(s): Jayleen Salter DO [Doctor of Osteopathic Medicine] - 3 Weeks Discharge Disposition: HOME SELF-CARE
[2022-01-17 08:39] VITALS: BP 121/77; PULSE 99; TEMP 97.7
== END 2022-01-17 09:46 | disposition home or self-care (01) ==
LOC: OR 07:29 → 4FBP 11:45 → OR 01-17 09:46
PROVIDERS: ATTEND Obstetrics & Gynecology
DX: N72 Inflammatory disease of cervix uteri (principal); N88.8 Other specified noninflammatory disorders of cervix uteri; N83.202 Unspecified ovarian cyst, left side; N83.201 Unspecified ovarian cyst, right side; M41.9 Scoliosis, unspecified; D13.4 Benign neoplasm of liver; C50.911 Malignant neoplasm of unspecified site of right female breast; M51.26 Other intervertebral disc displacement, lumbar region; Z90.89 Acquired absence of other organs; Z98.890 Other specified postprocedural states; Z98.891 History of uterine scar from previous surgery; Z87.891 Personal history of nicotine dependence; Z80.6 Family history of leukemia; Z81.8 Family history of other mental and behavioral disorders; Z88.2 Allergy status to sulfonamides; Z88.6 Allergy status to analgesic agent
CPT/HCPCS: 58570; 81025; 86900; 86901; 85025; 86850; J1100; J2765; J0690; J2405; J1170; J1644 ×2; 88307

== ENCOUNTER → 2022-03-26 | Outpatient (CLI) | payer BC ==
--- NOTE | 2022-03-26 09:24 | BD ---
EXAMINATION TYPE: Axial Bone Density DATE OF EXAM: 03/26/2022 COMPARISON: BASELINE CLINICAL HISTORY: 46 years old Female. ICD-10 CODE: C50.411 BREAST CANCER Height: 65 Weight: 168 FRAX RISK QUESTIONS: Family History (Parent hip fracture): NO History of Fracture in Adulthood: NO Secondary Osteoporosis: NO Rheumatoid Arthritis: Current Tobacco Use: YES VERY LIMITED RISK FACTORS HISTORY OF: Family History of Osteoporosis: NO Active: YES Diet low in dairy products/other sources of calcium: NO Postmenopausal woman: YES Lost more than 2 inches in height since high school: NO MEDICATIONS: Additional Medications: YES D3, Additional History: BREAST CANCER 2020 CHEMO [place]ROZOLE EXAM MEASUREMENTS: Bone mineral densitometry was performed using the [employer] System. Bone mineral density as measured about the Lumbar spine is: ----- L1-L4(G/cm2): 1.470 T Score Values are as follows: ----- L1: 0.6 ----- L2: 1.1 ----- L3: 2.0 ----- L4: 5.2 ----- L1-L4: 2.4 Bone mineral density BASELINE Bone mineral density about the R hip (g/cm2): 1.081 Bone mineral density about the L hip (g/cm2): 1.055 T Score values are as follows: -----R Neck: 0.0 -----L Neck: -0.3 -----R Total: 0.6 -----L Total: 0.4 Bone mineral density BASELINE FRAX%s: The graph provided illustrates a 2.4% chance for a major osteoporotic fx and a 0.1% chance fo r the hips probability for fx in 10 years time. IMPRESSION: Normal (Values between +1 and -1 indicate normal bone mass). Consider repeating this study in 5 year s or sooner if there is some new clinical indication. NOTE: T-SCORE=SD OF THE YOUNG ADULT MEAN.
== END | disposition home or self-care (01) ==
LOC: RADBDWWP 08:09
PROVIDERS: ATTEND Internal Medicine Hematology & Oncology
DX: C50.411 Malignant neoplasm of upper-outer quadrant of right female breast (principal)
CPT/HCPCS: 77080

== ENCOUNTER → 2022-07-29 | Outpatient (CLI) | payer BC ==
[2022-07-29 14:22] LABS: Basophils # (A) 0.03 X 10*3/uL (0.00-0.10); Basophils % (A) 0.7 %; Eosinophils % (A) 2.2 %; HGB 14.8 g/dL (12.0-15.0); Immature Grans, Automated 0.2 %; Lymphocytes # (A) 0.85 X 10*3/uL (0.90-5.00); Lymphocytes % (A) 18.7 %; MCH 30.6 pg (27.0-32.0); MCHC 32.2 g/dL (32.0-37.0); MCV 95.2 fL (80.0-97.0); Mean Platelet Volume 9.5 fL (9.5-12.2); Monocytes # (A) 0.21 X 10*3/uL (0.20-1.00); Monocytes % (A) 4.6 %; NRBC Per 100 WBC 0 /100 WBCS (0.0-0.0); Neutrophils # (A) 3.35 X 10*3/uL (1.80-7.70); Neutrophils % (A) 73.6 %; Platelet Count 317 X 10*3/uL (140-440); RBC 4.83 X 10*6/uL (4.10-5.20); RDW 12.2 % (11.5-14.5); WBC 4.55 X 10*3/uL (4.50-10.00)
[2022-07-29 15:07] LABS: Erythrocyte Sedimentation Rate 34 mm/Hr (0-20)
[2022-07-29 15:28] LABS: ALT 26 U/L (8-44); AST 22 U/L (13-35); African American GFR (CKD) 85.6 (60.0-200.0); Albumin 4.7 g/dL (3.8-4.9); Albumin/Globulin Ratio 2.09 (1.60-3.17); Alkaline Phosphatase 114 U/L (41-126); BUN/Creat Ratio 13.17 Ratio (12.00-20.00); Blood Urea Nitrogen 12.3 mg/dL (9.0-27.0); Calcium 10.2 mg/dL (8.7-10.3); Carbon Dioxide 24.3 mmol/L (20.0-27.5); Chloride 105 mmol/L (96-109); GGT 67 U/L (0-38); Globulin 2.2 g/dL (1.6-3.3); Glucose 94 mg/dL (70-110); Magnesium 2.3 mg/dL (1.5-2.4); Non-African American GFR(CKD) 73.8 (60.0-200.0); Potassium 4.4 mmol/L (3.5-5.5); Sodium 142 mmol/L (135-145); Total Protein 6.9 g/dL (6.2-8.2)
[2022-07-29 17:38] LABS: C Reactive Protein <0.30 mg/dL (0.00-0.80); LDH 176 U/L (120-246)
[2022-07-29 18:36] LABS: Cancer Antigen 125 10.3 U/mL (0.0-30.1); Cancer Antigen 153 13.4 U/mL (0.0-32.3)
[2022-07-29 20:23] LABS: Insulin Level 9.6 mIU/mL (3.0-25.0)
[2022-07-29 21:24] LABS: Homocysteine 10.1 umol/L (4.00-14.00); Thyroid Peroxidase Antibodies 10.9 U/mL (0.0-33.0)
[2022-07-30 01:47] LABS: ACTH 85.6 pg/mL (0.00-45.99)
[2022-07-30 11:47] LABS: Zinc, Serum 97 ug/dL (60-130)
[2022-07-31 08:14] LABS: Vitamin B6 33 ug/L (5-50)
== END | disposition home or self-care (01) ==
LOC: LABWHC1 08:17
PROVIDERS: ATTEND Nurse Practitioner Adult Health
DX: C50.919 Malignant neoplasm of unspecified site of unspecified female breast (principal); D68.69 Other thrombophilia; E55.9 Vitamin D deficiency, unspecified; E66.9 Obesity, unspecified
CPT/HCPCS: 36415; 80053; 82024; 82306; 82525; 82533; 82607; 82670; 82728; 82746; 82941; 82977; 83036; 83090; 83525; 83615; 83735; 83970; 84100; 84207; 84305; 84425; 84439; 84443; 84481; 84590; 84630; 85025; 85652; 86140; 86300; 86304; 86376

== ENCOUNTER → 2023-03-04 | Outpatient (CLI) | payer BC ==
--- NOTE | 2023-03-05 08:32 | CT ---
EXAMINATION TYPE: CT abdomen w con DATE OF EXAM: 03/04/2023 COMPARISON: Most recent prior CT April 03, 2021 and older studies HISTORY: Liver adenoma. history of breast Ca. Unable to raise arms due to bilateral mastectomy CT DLP: 902.2 mGycm Automated exposure control for dose reduction was used. TECHNIQUE: Helical acquisition of images was performed from the lung bases through the top of iliac crest to include entire abdomen. CONTRAST: Performed with Oral Contrast and with IV Contrast, patient injected with 100 mL of Isovue 300. FINDINGS: Evaluation suboptimal due to artifact from adjacent overlying upper extremities. LUNG BASES: Bilateral breast implants are partially imaged. LIVER/GB: Evaluation for masses suboptimal as is not run under dedicated liver protocol. Area of prio r slightly hyperdense solid mass in the deep liver adjacent to the IVC is less well seen on current s tudy. Areas slightly hypodense on delayed phase imaging measuring approximately 2.4 x 1.5 cm series 6 image 21. No new solid or cystic mass is clearly identified. No biliary dilatation is seen. PANCREAS: No significant abnormality is seen. SPLEEN: No significant abnormality is seen. ADRENALS: No significant abnormality is seen. KIDNEYS: No significant abnormality is seen. BOWEL: Oral contrast does not reach level of terminal ileum. No abnormal small or large bowel dilata tion is seen. Mild diffuse colonic fecal prominence noted. LYMPH NODES: No significant abnormality is seen. OSSEOUS STRUCTURES: Levoconvex scoliosis centered at L2 level is redemonstrated. Moderate to severe disc space narrowing with vacuum disc phenomenon at right L3-L4 and L4-L5 levels is redemonstrated. FREE AIR: No free air is visualized. OTHER: None. IMPRESSION: Suboptimal study. Known solid deep liver mass seen best on MRI November 15, 2019 is less well seen on current study likely due to technique. No new masses are present. Lesion likely best evaluat ed and monitored with dedicated liver protocol MRI without and with contrast.
== END | disposition home or self-care (01) ==
LOC: RADCTMAIN 02-26 11:54
PROVIDERS: ATTEND Internal Medicine Hematology & Oncology
DX: C50.411 Malignant neoplasm of upper-outer quadrant of right female breast (principal); D13.4 Benign neoplasm of liver; Z71.3 Dietary counseling and surveillance; Z90.13 Acquired absence of bilateral breasts and nipples
CPT/HCPCS: 74160; Q9967

== ENCOUNTER → 2024-03-28 | Outpatient (CLI) | payer BC ==
--- NOTE | 2024-03-28 12:16 | BD ---
EXAMINATION TYPE: Axial Bone Density DATE OF EXAM: 03/28/2024 CLINICAL HISTORY: 48 years old Female. ICD-10 CODE: M81.0 osteoporosis , Additional History: Height: 64.5 in Weight: 157 lbs FRAX RISK QUESTIONS: Secondary Osteoporosis: 3. Menopause before 46: partial hysterectomy age 23 Current Tobacco Use: rarely EXAM MEASUREMENTS: Bone mineral densitometry was performed using the [employer] System. Bone mineral density as measured about the Lumbar spine is: ----- L1-L4(G/cm2): 1.372 T Score Values are as follows: ----- L1: 0.2 ----- L2: 0.1 ----- L3: 1.6 ----- L4: 4.1 ----- L1-L4: 1.6 Z Score Values are as follows: ----- L1: 0.2 ----- L2: 0.0 ----- L3: 1.6 ----- L4: 4.1 ----- L1-L4: 1.6 Bone mineral density has: Decreased -6.7% since study of: 03/26/2022 Bone mineral density about the R hip (g/cm2): 0.999 Bone mineral density about the L hip (g/cm2): 0.960 T Score values are as follows: -----R Neck: -0.8 -----L Neck: -1.4 -----R Total: -0.1 -----L Total: -0.4 Z Score values are as follows: -----R Neck: -0.3 -----L Neck: -0.8 -----R Total: 0.2 -----L Total: -0.2 Bone mineral density has: Decreased -8.3% since study of: 03/26/2022 FRAX%s: The graph provided illustrates a 3.7% chance for a major osteoporotic fx and a 0.5% chance fo r the hips probability for fx in 10 years time. IMPRESSION: Normal (Values between +1 and -1 indicate normal bone mass). Consider repeating this study in 5 year s or sooner if there is some new clinical indication. NOTE: T-SCORE=SD OF THE YOUNG ADULT MEAN. [facility], , 03/28/2024 12:14 PM
== END | disposition home or self-care (01) ==
LOC: RADBDWWP 08:46
PROVIDERS: ATTEND Internal Medicine Hematology & Oncology
DX: Z13.820 Encounter for screening for osteoporosis (principal); M81.0 Age-related osteoporosis without current pathological fracture; Z78.0 Asymptomatic menopausal state
CPT/HCPCS: 77080

== ENCOUNTER 2024-11-18 12:00 | Day surgery (SDC) | payer BC ==
[2024-11-17 11:45] VITALS: BMI 25.7
[2024-11-18 12:39] VITALS: RESP 16; TEMP 97
[2024-11-18] MEDS: IV FLUID CONTINUATION 1,000 ML IV ONE (12:40)
[2024-11-18] MEDS: LACTATED RINGERS 1,000 ML IV SCH (12:49)
[2024-11-18] MEDS ORDERED: PROPOFOL 10 MG/ML 20 ML VIAL IV ONE (13:53)
--- NOTE | 2024-11-18 14:20 | P.PCN ---
Date of Procedure: 11/18/24 Procedure(s) Performed: BRIEF HISTORY: Patient is a 49-year-old pleasant white female scheduled for an elective colonoscopy as a part of screening for colon cancer. PROCEDURE PERFORMED: Colonoscopy. PREOPERATIVE DIAGNOSIS: Screening for colon cancer. IV sedation per Anesthesia. PROCEDURE: After informed consent was obtained, the patient, was brought into the endoscopy unit. IV sedation was administered by Anesthesia under continuous monitoring. Digital rectal examination was normal. Initially the Olympus CF-160 flexible video colonoscope was then inserted in the rectum, gradually advanced into the cecum without any difficulty. Careful examination was performed as the scope was gradually being withdrawn. Ileocecal valve and the appendiceal orifice were visualized and appeared normal. Prep was excellent. Mucosa of the cecum, ascending colon, transverse colon, descending colon, sigmoid colon, and rectum appeared normal. Scattered sigmoid diverticulosis. Retroflexion was performed in the rectum and no lesions were seen. The patient tolerated the procedure well. IMPRESSION: Normal-appearing colon from rectum to cecum with no evidence of colorectal neoplasia. Scattered sigmoid diverticulosis. RECOMMENDATIONS: Findings of this examination were discussed with the patient as well as her family. She was advised to have repeat screening colonoscopy in 10 years..
[2024-11-18 14:59] VITALS: BP 107/71; PULSE 70
== END 2024-11-18 15:01 ==
LOC: ORWHC2ENDO 12:00
PROVIDERS: ATTEND Internal Medicine Gastroenterology
DX: Z12.11 Encounter for screening for malignant neoplasm of colon (principal); K57.30 Diverticulosis of large intestine without perforation or abscess without bleeding; F17.210 Nicotine dependence, cigarettes, uncomplicated; M54.50 Low back pain, unspecified; M41.9 Scoliosis, unspecified; Z79.82 Long term (current) use of aspirin; Z88.6 Allergy status to analgesic agent; Z79.899 Other long term (current) drug therapy
CPT/HCPCS: 45378; J2704